=== PATIENT | female | born 1990 | race Caucasian/White ===

== ENCOUNTER 2018-01-02 08:00 | Outpatient (CLI) | payer OTHER ==
[2018-01-02 18:55] LABS: BASOPHILS % (AUTO) 0.8 %; EOSINOPHILS % (AUTO) 0.1 %; HGB - HEMOGLOBIN 13.2 g/dL (12.0-16.0); LYMPHOCYTES # (AUTO) 1.4 10^3/uL (1.5-3.5); LYMPHOCYTES % (AUTO) 33.3 %; MEAN CORPUSCULAR HEMOGLOBIN 29.7 pg (27.0-31.0); MEAN CORPUSCULAR HGB CONC 32.7 g/dL (32.0-36.0); MEAN CORPUSCULAR VOLUME 90.8 fL (81.0-99.0); MEAN PLATELET VOLUME 7.8 fL (7.9-10.8); MONOCYTES # (AUTO) 0.4 10^3/uL (0.0-1.0); MONOCYTES % (AUTO) 9.8 %; NEUTROPHILS # (AUTO) 2.4 10^3/uL (1.5-6.6); PLT - PLATELET COUNT 278 10^3/uL (130-450); RED BLOOD COUNT 4.43 10^6/uL (4.20-5.40); RED CELL DISTRIBUTION WIDTH 13.4 % (12.0-15.0); WHITE BLOOD COUNT 4.2 x10^3/uL (4.8-10.8)
[2018-01-02 19:28] LABS: THYROID STIMULATING HORMONE 1.14 uIU/mL (0.34-5.60)
[2018-01-02 19:39] LABS: FOLATE 17.6 ng/mL (5.90 - >24.8)
[2018-01-02 22:44] LABS: % IRON SATURATION 21 % (20-50); ALBUMIN 4.4 g/dL (3.2-5.5); ALBUMIN/GLOBULIN RATIO 1.6 (1.0-2.2); ALKALINE PHOSPHATASE 40 IU/L (42-121); ALT ALANINE AMINOTRANSFERASE 17 IU/L (10-60); AST ASPARTATE AMINOTRANSFERASE 19 IU/L (10-42); BILIRUBIN,TOTAL 0.2 mg/dL (0.2-1.0); BUN - BLOOD UREA NITROGEN 12 mg/dL (6-20); CALCIUM 9.1 mg/dL (8.5-10.3); CARBON DIOXIDE - CO2 27 mmol/L (21-32); CHLORIDE 104 mmol/L (101-111); CREATININE 0.4 mg/dL (0.4-1.0); GFR - MDRD 189 (>89); GLUCOSE 95 mg/dL (70-100); IRON 65 ug/dL (28-170); MAGNESIUM 2.1 mg/dL (1.7-2.8); SODIUM 137 mmol/L (135-145); TOTAL IRON BINDING CAPACITY 315 ug/dL (250-450); TOTAL PROTEIN 7.1 g/dL (6.7-8.2); TRANSFERRIN 225 mg/dL (192-382)
== END 2018-01-02 08:01 | disposition home or self-care (01) ==
LOC: LAB.WCP 08:00
PROVIDERS: ATTEND Physician Assistant
DX: R53.83 Other fatigue (principal)
CPT/HCPCS: 36415; 80053; 82607; 82746; 83540; 83735; 84443; 84466; 85025

== ENCOUNTER 2018-07-24 11:04 | Outpatient (CLI) | payer OTHER | END 2018-07-24 11:05 | disposition EMS.NT | LOC: EMS 11:04 | PROVIDERS: ATTEND Surgery | DX: O99.89 Other specified diseases and conditions complicating pregnancy, childbirth and the puerperium (principal); R51 Headache ==

== ENCOUNTER 2018-08-15 14:11 | Outpatient (CLI) | payer BC, OTHER ==
--- NOTE | 2018-08-16 10:27 | Ultrasound Report ---
Reason: PREG TEST POSITIVE Procedure Date: 08/15/2018 Accession Number: [id number] / [id number] Procedure: US - OB First Trimester CPT Code: FULL RESULT: EXAM: FIRST TRIMESTER OBSTETRIC ULTRASOUND (Less than 11 weeks) EXAM DATE: 08/15/2018 03:07 PM. CLINICAL HISTORY: test positive. LMP: 06/27/2018. COMPARISONS: None. TECHNIQUE: Transabdominal ultrasound examination with static image documentation. CLINICAL DATES: EGA 7 weeks 1 day with CLAUDIA 04/03/2019 based on LMP. ASSESSMENT: Gestational Sac: Single intrauterine. Mean gestational sac diameter: 22.5 mm = 6 weeks 6 days. Embryo: CRL (crown-rump length) 5.2 mm = 6 weeks 2 days. Cardiac activity: 117 beats per minute. Yolk sac: 3.1 mm. Amniotic fluid: Not accurately assessed at this gestational age. Early placenta: Not visible at this gestational age. Other: No perigestational fluid collection demonstrated. MATERNAL STRUCTURES: Uterus: Anteverted. Unremarkable. Cervix: Closed. Right Ovary/Adnexa: The ovary measures 3.9 x 2.3 x 1.7 cm, volume 7.9 cc. Unremarkable. Left Ovary/Adnexa: The ovary measures 4.6 x 2.3 x 2 cm, volume 11 cc. Unremarkable. Free Fluid: None. Other: None. IMPRESSION: 1. Single viable intrauterine at EGA 6 weeks 2 days with CLAUDIA 04/08/19 based on crown-rump length, which is concordant with clinical dates. 2. Assigned dating is CLAUDIA 04/03/2019 based on LMP. RADIA
== END 2018-08-15 14:12 | disposition home or self-care (01) ==
LOC: DI 14:11
PROVIDERS: ATTEND Nurse Practitioner Obstetrics & Gynecology
DX: Z32.01 Encounter for pregnancy test, result positive (principal); Z3A.01 Less than 8 weeks gestation of pregnancy
CPT/HCPCS: 76801

== ENCOUNTER 2018-09-05 09:44 | Outpatient (CLI) | payer BC, OTHER ==
[2018-09-05 17:57] LABS: MUDS CUTOFF CONCENTRATIONS CUTOFF CONC BELOW:
[2018-09-05 18:20] LABS: AMPHETAMINE SCREEN,URINE NEGATIVE (NEGATIVE); BENZODIAZEPINES SCREEN, URINE NEGATIVE (NEGATIVE); COCAINE SCREEN URINE NEGATIVE (NEGATIVE); METHADONE SCREEN, URINE NEGATIVE (NEGATIVE); METHAMPHETAMINES SCREEN, URINE NEGATIVE (NEGATIVE); OPIATE SCREEN, URINE NEGATIVE (NEGATIVE); OXYCODONE SCREEN, URINE NEGATIVE (NEGATIVE); PROPOXYPHENE SCREEN, URINE NEGATIVE (NEGATIVE); TRICYCLIC ANTIDEPRESSANT,URINE NEGATIVE (NEGATIVE)
== END 2018-09-05 23:59 | disposition home or self-care (01) ==
LOC: LAB.R 09:44
PROVIDERS: ATTEND Nurse Practitioner Obstetrics & Gynecology
DX: Z36.89 Encounter for other specified antenatal screening (principal)
CPT/HCPCS: 80306; 87491; 87591

== ENCOUNTER 2018-09-10 09:44 | Outpatient (CLI) | payer BC, OTHER ==
[2018-09-10 10:11] LABS: BASOPHILS % (AUTO) 0.8 %; EOSINOPHILS % (AUTO) 0.1 %; HGB - HEMOGLOBIN 13.1 g/dL (12.0-16.0); LYMPHOCYTES # (AUTO) 1.2 10^3/uL (1.5-3.5); LYMPHOCYTES % (AUTO) 21.7 %; MEAN CORPUSCULAR HEMOGLOBIN 30.7 pg (27.0-31.0); MEAN CORPUSCULAR HGB CONC 33.9 g/dL (32.0-36.0); MEAN CORPUSCULAR VOLUME 90.7 fL (81.0-99.0); MEAN PLATELET VOLUME 6.7 fL (7.9-10.8); MONOCYTES # (AUTO) 0.5 10^3/uL (0.0-1.0); MONOCYTES % (AUTO) 8.9 %; NEUTROPHILS # (AUTO) 3.9 10^3/uL (1.5-6.6); NEUTROPHILS % (AUTO) 68.5 %; PLT - PLATELET COUNT 287 10^3/uL (130-450); RED BLOOD COUNT 4.28 10^6/uL (4.20-5.40); RED CELL DISTRIBUTION WIDTH 13.5 % (12.0-15.0); WHITE BLOOD COUNT 5.6 x10^3/uL (4.8-10.8)
[2018-09-10 10:22] LABS: BILIRUBIN,URINE NEGATIVE (NEGATIVE); GLUCOSE, URINE (UA) NEGATIVE (NEGATIVE); KETONES,URINE (UA) NEGATIVE (NEGATIVE); LEUKOCYTE ESTERASE, URINE SMALL (NEGATIVE); NITRITE,URINE NEGATIVE (NEGATIVE); OCCULT BLOOD,URINE NEGATIVE (NEGATIVE); PROTEIN,URINE NEGATIVE (NEGATIVE); UROBILINOGEN,URINE 0.2 (NORMAL) E.U./dL (NORMAL)
[2018-09-10 10:32] LABS: BACTERIA,URINE Few /HPF (None Seen); CLARITY,URINE HAZY (CLEAR); RBC,URINE 0-5 /HPF (0-5); SQUAMOUS EPITHELIAL CELL,UR FEW Squamous (<= Few)
[2018-09-11 12:33] LABS: HEPATITIS C ANTIBODY NON-REACTIVE (NON-REACTIVE)
[2018-09-11 13:52] LABS: HIV AG/AB 4TH GEN NON-REACTIVE (NON-REACTIVE)
[2018-09-11 14:22] LABS: HEPATITIS B SURFACE ANTIGEN NON-REACTIVE (NON-REACTIVE)
== END 2018-09-10 09:45 | disposition home or self-care (01) ==
LOC: LAB 09:44
PROVIDERS: ATTEND Nurse Practitioner Obstetrics & Gynecology
DX: Z36.89 Encounter for other specified antenatal screening (principal)
CPT/HCPCS: 36415; 81001; 81599; 85025; 86762; 86803; 86850; 86900; 86901; 87086; 87340; 87389

== ENCOUNTER 2018-11-18 13:34 | Outpatient (CLI) | payer BC, OTHER ==
--- NOTE | 2018-11-18 16:03 | Ultrasound Report ---
Reason: ECNOUNTER FOR OTHER SPECIFIED SCREENING Procedure Date: 11/18/2018 Accession Number: [id number] / [id number] Procedure: US - OB Detailed Eval CPT Code: FULL RESULT: EXAM: COMPLETE OBSTETRICAL ULTRASOUND EXAM DATE: 11/18/2018 03:18 PM. CLINICAL HISTORY: anatomic survey. COMPARISON: None. TECHNIQUE: Real-time sonographic evaluation of the fetus performed by the graphic pre press trades worker. Multiple registration representative static images were saved for review. DATING: Established EGA 20 weeks 4 days with CLAUDIA 04/03/2019 based on ground support agent. EGA 19 weeks 5 days with CLAUDIA 04/09/2019 based on the current ultrasound. GENERAL EVALUATION Caro . Cardiac activity: 142 bpm. movement: Visualized. Presentation: Breech Placenta: Fundal position. No evidence for previa. Umbilical cord: 3 vessel cord. Central placental cord origin. Amniotic fluid: Subjectively normal. MVP 3.9 cm and EMA 9.4 cm. BIOMETRY Bi-Parietal Diameter (BPD): 4.5 cm, 19 weeks 4 days Head Circumference (HC): 17.5 cm, 20 weeks 0 days Abdominal Circumference (AC): 14.5 cm, 19 weeks 6 days Femur Length (FL): 31 cm, 19 weeks 4 days Estimated Weight: 311 g, 12th percentile for 20 weeks 4 days. ANATOMY The intracranial structures, profile, face/nose/lips, spine, 4 chamber heart and outflow tracts, stomach, abdominal wall and cord insertion, diaphragm, kidneys, bladder, and extremities were visualized and demonstrate no abnormality. MATERNAL STRUCTURES Uterus: Unremarkable. Cervix: Long and closed. Transabdominal length 4.3 cm. Right ovary/adnexa: Unremarkable. Left ovary/adnexa: Unremarkable. Free fluid: None. IMPRESSION: 1. Caro live intrauterine with gestational age weeks/days based on source of assigned dating. 2. Estimated weight is on the lower end of normal when based on the last menstrual period but within expected limits for assigned dating. Taking into account the interval growth from the first trimester dating ultrasound further supports this interpretation. Recommend attention on followup. 3. Normal anatomic survey. No anatomic abnormalities are detected at this time. RADIA
== END 2018-11-18 13:35 | disposition home or self-care (01) ==
LOC: DI 13:34
PROVIDERS: ATTEND Registered Nurse
DX: Z36.89 Encounter for other specified antenatal screening (principal)
CPT/HCPCS: 76811

== ENCOUNTER 2018-12-24 14:22 | Outpatient (CLI) | payer BC, OTHER ==
[2018-12-24 15:49] LABS: HGB - HEMOGLOBIN 11.8 g/dL (12.0-16.0); MEAN CORPUSCULAR HGB CONC 33.4 g/dL (32.0-36.0); RED BLOOD COUNT 3.8 10^6/uL (4.20-5.40); RED CELL DISTRIBUTION WIDTH 13.7 % (12.0-15.0); WHITE BLOOD COUNT 8.1 x10^3/uL (4.8-10.8)
== END 2018-12-24 14:23 | disposition home or self-care (01) ==
LOC: LAB 14:22
PROVIDERS: ATTEND Registered Nurse
DX: Z34.90 Encounter for supervision of normal pregnancy, unspecified, unspecified trimester (principal)
CPT/HCPCS: 36415; 82950; 85027; 86850

== ENCOUNTER 2019-02-09 12:59 | Outpatient (CLI) | payer BC, OTHER ==
[2019-02-09 13:16] VITALS: BP 124/72
--- NOTE | 2019-02-16 11:25 | PROVIDER PROGRESS NOTE ---
- HPI Chief Complaint: Fall Current : Current EDU 04/02/19 Gestation 32 Weeks and 4 Days 1 Para 0 Vital Signs Temperature 36.9 C 02/09/19 13:10 Heart Rate 109 H 02/09/19 13:10 Respiratory Rate 20 02/09/19 13:10 Blood Pressure 124/72 02/09/19 13:10 O2 Saturation 99 02/09/19 13:10 Temperature 36.9 C 02/09/19 13:10 Heart Rate 109 H 02/09/19 13:10 Respiratory Rate 20 02/09/19 13:10 Blood Pressure 124/72 02/09/19 13:10 O2 Saturation 99 02/09/19 13:10 - Exam Date of Service 02/09/2019: Romina presents today after phoning the clinic following a fall during a hike. She states she fell on her right hip. She denies any impact to her abdomen. She denies contractions or bleeding. Reports +FM but feel the movements may be slightly less exaggerated. 2 hours of continuous monitoring secondary to fall. No abdomen involvement. NST reactive. Baseline 150s, moderate variability. + accels, no decels. Tocometry neg contractions. - Procedures OB Procedure Performed: NST NST Procedure: 2 hours of monitoring: NST reactive - baseline 150s, moderate variability, + accels, no decels. Tocometry = no contractions. Service Date of procedure: 02/09/19 - Plan Plan: Pt released home with precautions. She verbalized understanding and denies further questions or concerns at this time.
== END 2019-02-09 15:15 | disposition home or self-care (01) ==
LOC: EEVIPCON 12:59 → WFO 12:59 → FBP 13:02 → WFO 15:15
PROVIDERS: ATTEND Nurse Practitioner Obstetrics & Gynecology
DX: Z34.03 Encounter for supervision of normal first pregnancy, third trimester (principal); Z3A.32 32 weeks gestation of pregnancy
CPT/HCPCS: 99212

== ENCOUNTER 2019-02-25 08:31 | Outpatient (CLI) | payer BC, OTHER ==
--- NOTE | 2019-02-25 14:50 | Ultrasound Report ---
Reason: UTERINE SIZE DATE DISCREPANCY,THIRD TRIMESTER Procedure Date: 02/25/2019 Accession Number: [id number] / [id number] Procedure: US - OB F/U or Repeat CPT Code: FULL RESULT: EXAM: FOLLOW-UP OBSTETRICAL ULTRASOUND EXAM DATE: 02/25/2019 09:14 AM. CLINICAL HISTORY: UTERINE SIZE DATE DISCREPANCY, THIRD TRIMESTER. COMPARISON: OB DETAILED EVAL 11/18/2018 1:49 PM. TECHNIQUE: Real-time sonographic evaluation of the fetus performed by the cross tie tram loader. Multiple ocean import representative static images were saved for review. DATING: Established EGA 34 weeks 6 days with CLAUDIA 04/02/2019 based on working due date. EGA 34 weeks 5 days with CLAUDIA 04/03/2019 based on LMP. EGA 34 weeks 3 days with CLAUDIA 04/05/2019 based on the current ultrasound. GENERAL EVALUATION Caro . Cardiac activity: 133 bpm. movement: Visualized. Presentation: Vertex Placenta: Anterior and laterally to the right. Amniotic fluid: Normal. EMA 20.5 cm. MVP 6.6 cm. BIOMETRY Bi-Parietal Diameter (BPD): 8.7 cm, 34 weeks 6 days Head Circumference (HC): 31.2 cm, 34 weeks 6 days Abdominal Circumference (AC): 30.8 cm, 34 weeks 5 days Femur Length (FL): 6.4 cm, 33 weeks 0 days Estimated Weight: 2394 grams, 30th percentile for 34 weeks 6 days. IMPRESSION: 1. Caro live intrauterine with gestational age 34 weeks 6 days based on working due date. 2. Estimated weight is within expected limits for assigned dating. 3. Normal interval growth compared to 11/18/2018. JORGE
== END 2019-02-25 08:32 | disposition home or self-care (01) ==
LOC: DI 08:31
PROVIDERS: ATTEND Nurse Practitioner Obstetrics & Gynecology
DX: O26.843 Uterine size-date discrepancy, third trimester (principal); Z3A.34 34 weeks gestation of pregnancy
CPT/HCPCS: 76816

== ENCOUNTER 2019-03-12 | Outpatient (CLI) | payer BC, OTHER | END 2019-03-12 23:59 | disposition home or self-care (01) | DX: N89.8 Other specified noninflammatory disorders of vagina (principal) | CPT/HCPCS: 87661; 87801 ==

== ENCOUNTER 2019-03-18 10:11 | Outpatient (CLI) | payer OTHER ==
[2019-03-18 10:42] VITALS: BP 120/84
--- NOTE | 2019-03-18 17:57 | PROCEDURE REPORT ---
- HPI Diagnosis/Indication for NST: Decreased movement Current EDU 04/02/19 Gestation 37 Weeks and 6 Days 1 Para 0 Vital Signs Temperature 36.8 C 03/18/19 10:40 Heart Rate 83 03/18/19 10:40 Respiratory Rate 16 03/18/19 10:40 Blood Pressure 120/84 H 03/18/19 10:40 O2 Saturation 99 03/18/19 10:40 Temperature 36.8 C 03/18/19 10:40 Heart Rate 83 03/18/19 10:40 Respiratory Rate 16 03/18/19 10:40 Blood Pressure 120/84 H 03/18/19 10:40 O2 Saturation 99 03/18/19 10:40 - NST Procedure NST Procedure Start Date 03/18/19 Start Time 10:25 Stop Time 10:59 Vibroacoustic Stimulation Used No Patient States Movement Yes - Results and Plan Findings/Impression: NST reactive. Baseline 130s, moderate variability, + accels, no decels Plan: Pt released home with precautions.
== END 2019-03-18 11:16 | disposition home or self-care (01) ==
LOC: WFO 10:11 → FBP 10:21 → WFO 11:16
PROVIDERS: ATTEND Nurse Practitioner Obstetrics & Gynecology
DX: O36.8130 Decreased fetal movements, third trimester, not applicable or unspecified (principal); Z3A.37 37 weeks gestation of pregnancy
CPT/HCPCS: 59025

== ENCOUNTER 2019-04-03 11:58 | Outpatient (CLI) | payer OTHER ==
--- NOTE | 2019-04-03 15:19 | Ultrasound Report ---
Reason: OBESITY, UNSPECIFIED Procedure Date: 04/03/2019 Accession Number: [id number] / [id number] Procedure: US - OB F/U or Repeat CPT Code: FULL RESULT: EXAM: FOLLOW-UP OBSTETRICAL ULTRASOUND EXAM DATE: 04/03/2019 02:28 PM. CLINICAL HISTORY: OBESITY, UNSPECIFIED. COMPARISON: OB F/U OR REPEAT 02/25/2019 8:38 AM. TECHNIQUE: Real-time sonographic evaluation of the fetus performed by the certified technician specialist. Additional transvaginal imaging to more accurately evaluate cervical length/placental position/etc. Multiple public relations representative static images were saved for review. DATING: Established EGA 40 weeks 1 day with CLAUDIA 04/02/2019 based on source of assigned dating. EGA 39 weeks 1 day based on the current ultrasound. GENERAL EVALUATION Caro . Cardiac activity: 125 bpm. movement: Visualized. Presentation: Cephalic. Placenta: Posterior position. Amniotic fluid: Normal. EMA 21.9 cm. MVP 6.2 cm. BIOMETRY Bi-Parietal Diameter (BPD): 9.5 cm, 38/4 Head Circumference (HC): 34.7 cm, 40/2 Abdominal Circumference (AC): 33.6 cm, 37/4 Femur Length (FL): 7.8 cm, 39/6 Estimated Weight: 3518 g, 39th percentile for 40 weeks 1 day. Biophysical profile: breathin/2 movement: 2/2 tone: 2/2 Amniotic fluid: 2/2 Biophysical profile score: 8/8. Umbilical cord Doppler was performed with mean peak systolic velocity of 55.1 cm/s and forward diastolic flow. Resistive index ranged from 0.5-0.69. S/D of 2.3, 3.2, 2.4, 2.0 and 2.1. IMPRESSION: 1. Caro live intrauterine with gestational age 40 weeks 1 day based on source of assigned dating. 2. Estimated weight is within expected limits for assigned dating. Normal interval growth. 3. Biophysical profile score of 8/8. BINA
== END 2019-04-03 11:59 | disposition home or self-care (01) ==
LOC: DI 11:58
PROVIDERS: ATTEND Obstetrics & Gynecology
DX: O26.843 Uterine size-date discrepancy, third trimester (principal); Z3A.40 40 weeks gestation of pregnancy
CPT/HCPCS: 76816

== ENCOUNTER 2019-04-06 12:02 | Inpatient (IN) | payer OTHER ==
[2019-04-06] MEDS ORDERED: SODIUM CHLORIDE FLUSH 0.9% 10 ML SYRINGE ONE (12:57)
[2019-04-06 13:16] LABS: BASOPHILS % (AUTO) 0.2 %; HGB - HEMOGLOBIN 11.2 g/dL (12.0-16.0); LYMPHOCYTES # (AUTO) 1.2 10^3/uL (1.5-3.5); LYMPHOCYTES % (AUTO) 11.1 %; MEAN CORPUSCULAR VOLUME 90.9 fL (81.0-99.0); MEAN PLATELET VOLUME 10.4 fL (7.9-10.8); MONOCYTES # (AUTO) 0.8 10^3/uL (0.0-1.0); MONOCYTES % (AUTO) 7.9 %; NEUTROPHILS # (AUTO) 8.3 10^3/uL (1.5-6.6); NEUTROPHILS % (AUTO) 80.3 %; PLT - PLATELET COUNT 292 10^3/uL (130-450); RED BLOOD COUNT 3.73 10^6/uL (4.20-5.40); WHITE BLOOD COUNT 10.3 x10^3/uL (4.8-10.8)
[2019-04-06 13:19] LABS: CREATININE,URINE 71.3 mg/dL; PROTEIN/CREATININE RATIO,URINE 0.2 (<=0.2)
[2019-04-06 13:27] LABS: URIC ACID 4.6 mg/dL (2.6-7.2)
[2019-04-06] MEDS ORDERED: OXYTOCIN/DEXTROSE 5 % 30 UNIT/500 ML BAG IV PRN (14:47)
[2019-04-06] MEDS ORDERED: fentaNYL 100 MCG/2 ML VIAL IVP PRN (14:47)
[2019-04-06] MEDS ORDERED: SODIUM CHLORIDE FLUSH 0.9% 10 ML SYRINGE IVP PRN (14:47)
[2019-04-06] MEDS ORDERED: LACTATED RINGERS 1,000 ML IV SCH (15:00)
[2019-04-06] MEDS ORDERED: ACETAMINOPHEN 325 MG TABLET PO SCH (15:00)
[2019-04-06] MEDS ORDERED: SODIUM CHLORIDE FLUSH 0.9% 10 ML SYRINGE IVP SCH (17:00)
--- NOTE | 2019-04-06 20:01 | HISTORY & PHYSICAL EXAMINATION ---
Admit History - Visit Reason Visit Reason: Other - : 1 Parity: 0 Premature: 0 Ectopic: 0 : 0 Care: positive: [facility] Risk/History: positive: None Complications This : positive: None Smoking Status: Never smoker - Mother's Labs Mother's Blood Type: positive: O Mother's RH: positive: Positive GBS: positive: Group B Step Negative Rubella Status: positive: Immune Review of Systems - Constitutional Constitutional: denies: Fatigue, Fever, Chills, Malaise - Eyes Eyes: denies: Blurred vision, Spots in vision, Dipolpia - Cardiovascular Cariovascular: reports: Lightheadedness. denies: Irregular heart rate, Chest pain, Edema - Respiratory Respiratory: denies: SOB at rest - Gastrointestinal Gastrointestinal: denies: Constipation, Diarrhea, Change in bowel habits, Nausea, Vomiting - Musculoskeletal Musculoskeletal: denies: Back pain - Integumentary Integumentary: denies: Rash, Pruritis - Neurological Neurological: denies: Headache, Dizziness - Psychiatric Psychiatric: denies: Depression, Anxiety Physical - Abdominal Exam Vital Signs: Temp Pulse Resp BP Pulse Ox 36.5 C 79 20 144/89 H 100 04/06/19 12:15 04/06/19 14:42 04/06/19 14:42 04/06/19 14:42 04/06/19 14:34 Contraction Frequency (min/apart): 5-7 minutes Contraction Intensity: positive: Moderate to strong Uterine Resting Tone: positive: Soft - Monitoring Heart Rate Baseline: 130 Strip Review: positive: Category I - Presentation Presentation: positive: Vertex - Vaginal Exam Membranes: positive: Membranes ruptured Dilation (in cm): 4 Effacement (%): 50 Station: positive: -1 Cervical Position: positive: Midposition - Speculum Exam Speculum Exam Performed: positive: No Plan for Labor - Plan For Labor I expect patient to be DC'd or transferred within 96 hours.: Yes Plan for Labor: HPI: Romina is a 28yo @ 40.4wks gestation by LMP c/w 8wk U/S who presents with c/o contractions that began at approximately 0200 on 04/06/2019. She states she did lose her mucus plug this morning and there was some spotting with that but otherwise denies vaginal bleeding or leakage of fluid. She reports +FM. She noted some light headedness throughout the day today in addition to swelling to her thighs bilaterally. Her BP was slightly elevated from her normal (130s/80s- 90s) upon arrival. She denies WALLER, visual disturbances, RUQ or epigastric pain. Her PIH labs were all WNL. She has been a patient of [facility] for the duration of which has been complicated only by size less than dates for which she has had 2 growth and EMA ultrasounds which were WNL. The most recent was 2 days ago which was WNL. EFW 3518g, BPP 8/8 and EMA WNL. Upon arrival she was noted to be 2/30/-1, vertex with intact membranes. She progressed to 3-//-1, vertex and was admitted for expectant management. Dating criteria: LMP 06/27/2019 Initial ultrasound at 8wks - agrees Serial Exams: Agree OB History: G1: Current PMHx: Situational depression; Gastric ulcers Surgical Hx: EGD with biopsies 2015 - H. pylori negative; [place] teeth removal Social hx: NEver smoker, no ETOH or IVDA. 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 Peter Family Hx: HTN- father; Alcoholism- brother; Stroke/CVA - Maternal grandmother; Breast cancer - Maternal grandmother, paternal grandmother; cardiovascular disease- multiple MIs 56/57, valvular disease. Genetic Hx: None Medications: PNV, TUMS, zantac, tylenol PRN Allergies: Sulfa labs: Hgb 11.2; Hct 33.9; PLT 292 Blood type O positive, antibody neg Rubella immune RPR non-reactive HIV non-reactive GC/CT neg Hep B neg Pap 11/10/2016 - neg UTOX neg TSH 1.14 28wk labs: Antibody neg 1 hour GTT 110 GBS neg Tdap 01/20/2019 Ultrasounds: Initial ultrasound @ 8wks c/w LMP dating FAS WNL; Fundal placenta, no previa. EMA WNL, 3VC. 02/25/19 growth and MEA secondary to size<dates WNL. EFW 30th percentile. 04/03/2019 growth and EMA secondary to size<dates WNL. EFW 3518g 39th percentile. BPP 8/8 Physical Exam: Heart RRR w/o M/G/R Lungs CTAB Abdomen gravid, soft, nontender EFW 3500g SVE 4/50/-1, midposition, soft, vertex AROM moderate amount of moderately meconium stained amniotic fluid FHR baseline 130, moderate variability, + accels, no decels Contractions palpate moderate to strong every 5-7 minutes with soft resting tone Bilateral LEs trace edema DTRs brisk - no clonus Assessment: 28yo @ 40.4wks gestation by LMP Active labor GBS neg AROM - moderate meconium Plan: Intermittent monitoring Expectant management Encouraged ambulation and position changes Nitrous oxide PRN. Epidural per maternal request - pt does intend unmedicated delivery Anticipate spontaneous vaginal delivery
[2019-04-06] MEDS ORDERED: ONDANSETRON 4 MG/2 ML VIAL IVP PRN (21:13)
[2019-04-07] MEDS ORDERED: LIDOCAINE 1% 50 ML MDV SUBQ ONE (03:50)
[2019-04-07] MEDS ORDERED: LIDOCAINE-MPF 1% 30 ML VIAL ONE (04:03)
[2019-04-07] MEDS ORDERED: WITCH HAZEL/GLYCERIN 1 PAD TOP PRN (04:26)
[2019-04-07] MEDS ORDERED: HYDROCORTISONE 1% CREAM 28 GM TUBE PR PRN (04:26)
--- NOTE | 2019-04-07 04:35 | DELIVERY NOTE ---
Delivery Note - Labor Labor: positive: Augmented by ARM - Infant Delivery Method Delivery Method: positive: Spontaneous vaginal delivery - Presentation Presentation: positive: Vertex, DAMARI - left occiput anterior - Nuchal Cord Nuchal Cord: positive: None - Amniotic Fluid Description Amniotic Fluid Description: positive: Moderate meconium - Episiotomy Type Episiotomy Type: positive: None - Laceration Laceration: positive: 1st degree, Perineal - Suture Suture Type: positive: Vicryl Suture Size: positive: 3-0 - Delivery Outcome Delivery Outcome: positive: Livebirth - [place] : positive: Placed in direct skin contact with mother, Bulb syringe, Stimulated, Warmed, [place] used [place] sex: positive: Female - Cord Cord: positive: 3 vessels - Placenta Placenta: positive: Intact, Spontaneous - Estimated Blood Loss Estimated Blood Loss (in cc): 250 - Post Delivery Events Post Delivery Events: positive: No post delivery events - Delivery Comments (Free Text/Narrative) Delivery Comments (Free Text/Narrative): Labor: This 28yo @ 40.5wks gestation by LMP presented on 04/06/2019 in early labor. Cervix was 2/30/-2, vertex with intact membranes. In 4 hours she progressed to to 3/50/-1, vertex. FHR pattern demonstrated Category I pattern throughout labor. Normal labor course. AROM occurred at 1952 and was noted to be a moderate amount of meconium stained amniotic fluid. Patient progressed to c/c/+1 at 0324. : Normal of viable female infant at 0345 on 04/07/2019. No nuchal cord. 's 9/9 at 1 and 5 min respectively. The was placed on maternal abdomen, stimulated, dried, and placed skin to skin. Pitocin administered via IV for hemostasis. The umbilical cord was allowed to stop pulsating at which time it was doubly clamped by CNM and cut by FOB. Cord blood was obtained. 3VC. Placenta delivered spontaneously and intact at 0350. EBL 250mL. Uterine fundus firm and there is no excessive bleeding. The perineum, vagina, and cervix were inspected and found to have a first degree perineal laceration which was repaired using a 3-[address]-1 needle in standard fashion under sterile conditions. Vaginal examination following repair was completed. Tissues well approximated. initiated. Family bonding well. Both mother and baby were left in stable condition.
[2019-04-07] MEDS: ACETAMINOPHEN 500 MG TABLET PO SCH ×3 (04:57→21:22)
[2019-04-07] MEDS ORDERED: IBUPROFEN 800 MG TABLET PO SCH (05:00)
[2019-04-07] MEDS: DOCUSATE SODIUM 100 MG CAPSULE PO SCH ×2 (09:12→21:22)
[2019-04-08] MEDS: ACETAMINOPHEN 500 MG TABLET PO SCH (05:44)
[2019-04-08] MEDS: DOCUSATE SODIUM 100 MG CAPSULE PO SCH (08:08)
[2019-04-08 08:15] VITALS: BP 121/90
--- NOTE | 2019-04-08 08:50 | Discharge Plan ---
Discharge Plan Problem Reviewed?: Yes Disposition: Home, Self Care Condition: Good Diet: Regular Activity Restrictions: No Restrictions Shower Restrictions: No Driving Restrictions: No Weight Bearing: Full Weight No Smoking: If you smoke, Please STOP! Call for help. Follow-up with: Anayeli Theodore CNM, ARNP [Provider Admit Priv/Credential] -
--- NOTE | 2019-04-08 08:53 | PROVIDER PROGRESS NOTE ---
Subjective - Subjective Subjective: FINAL PROGRESS NOTE: S: Bonding well with baby. without difficulty. Bleeding decreased and is light. Pain is well controlled with oral medications. Perineum slightly uncomfortable but overall she is feeling well. Anxious to go home today. She denies concerns or complaints. O: BP 121/90, HR 72, T 36.7, RR 18. Heart RRR w/o M/G/R, lungs CTAB, abdomen soft and nontender with fundus firm at U-1, Perineum intact, light lochia rubra, bilateral LE's no edema. A: 28yo -->P1 PPD#1 s/p TSVD of viable female infant P: Reviewed pp self care and warning s/sx and when to present. Advised continuation of PNV while . Advised ibuprofen and tylenol OTC for pain management PRN. F/u in 1 week for support visit and in 3 weeks for routine pp visit or sooner PRN. PT verbalized understanding and agrees to above plan. She denies further questions or concerns at this time. Objective - Vital Signs/Intake & Output Vital Signs: Vital Signs x48h Temp Pulse Resp BP BP Pulse Ox 04/08/19 08:00 36.7 C 72 18 121/90 H 98 04/08/19 05:38 37 C 73 18 124/73 Intake & Output: Intake & Output 04/05/19 04/06/19 04/07/19 04/08/19 23:59 23:59 23:59 23:59 Intake Total 360 350 Output Total 750 Balance 360 -750 350 - Lab Results Fish Bones: 04/06/19 12:55
--- NOTE | 2019-04-08 09:42 | DISCHARGE SUMMARY ---
Physician: SINCERE Castaneda DATE OF ADMISSION: 04/06/2019 DATE OF DISCHARGE: 04/08/2019 DIAGNOSES ON ADMISSION 1. A 28-year-old G1, P0 at 40.4 weeks gestation. 2. Early labor. 3. Group B Streptococcus negative. DIAGNOSES ON DISCHARGE 1. A 28-year-old G1, P1-0-0-1, status post spontaneous vaginal delivery on 04/07/2019. 2. Normal recovery. HISTORY OF PRESENT ILLNESS: She is a patient of [facility] who presented on with complaints of contractions. Cervix was 2 cm dilated, 30% effaced, -2 station, vertex positi on with intact membranes. She progressed in 4 hours to 3 cm dilated, 50% effaced, and -1 station and was admitted to [facility] for expectant management. She was augmented with artificial rupture of membranes, which occurred at 1952 and was noted to be a moderate amount of meco nium-stained amniotic fluid. The patient progressed to spontaneously deliver a viable female infant at 0345 on 04/07/2019. Apgars were 9 and 9 at 1 and 5 minutes, respectively. EBL 250 mL. The perin eum, vagina and cervix were inspected and found to have a first-degree perineal laceration, which was repaired using a 3-0 Vicryl on a CT1 needle in standard fashion under sterile conditions. She has been doing well in her course. She is ambulating and tolerating a regular diet. She is urinating without difficulty and her lochia is normal. Her pain is well controlled with oral medications. She will be discharged home today on day #1 with instructions to continue he r vitamin while , and to take [id number] ibuprofen and Tylenol as needed for pain management. She intends to followup with myself at [facility] in 1 week fo r support visit and in 3 weeks for routine visit. She has been given precaution s to call if she has any worsening fevers, chills, abdominal pain, increased bleeding or foul-smellin g vaginal lochia. TD: 04/08/2019 09:25
--- NOTE | 2019-04-08 12:39 | Labor Flowsheet ---
Labor Flowsheet Datetime Report Generated by CPN: 04/08/2019 12:39 Datetime: 04/08/2019 08:01 VITAL SIGNS NBP Sys/[place]/Mean (mmHg): 121 : 90 : 97 Pulse: 72 LaborFlag: Labor Datetime: 04/07/2019 14:00 SpO2 (%): 99 Datetime: 04/07/2019 03:45 MEDICATIONS Medication Comments: NITROUS OFF Datetime: 04/07/2019 03:44 UTERINE ACTIVITY Monitor Mode: Palpation Quality: Strong Resting Tone (Palpate): Relaxed Contraction Comments: wireless toco battery and never replaced prior to d/t pt ASSESSMENT A Monitor Mode: External US Comments: indeterminate baseline; HR ranged from 80s-120s; possible variable decels vs late decels vs early decels w/ pushing Datetime: 04/07/2019 03:33 Monitor Interventions for FHR: Ultrasound Adjusted Datetime: 04/07/2019 03:30 PATIENT CARE Patient Position/Activity: Right Tilt Datetime: 04/07/2019 03:24 VAGINAL EXAM Dilatation (cm): 10.0 Effacement (%): 100 Exam by: DOTTIE SanchezM Datetime: 04/07/2019 03:23 Frequency (min): 2-3.5 Duration (sec): 90-120 Pattern: Normal: <= 5 Contractions in 10 Minutes FHR Baseline Rate : 120 Variability: Moderate 6-25 bpm Accelerations: 15X15 Decelerations: Early Category: Category I STAGE 2 Pushing: Coached on Pushing; Urge to Push Pushing Position: Pushing with Contractions; Pushing Right Side; Pushing Lithotomy Pushing Progress: Descent with Pushing Datetime: 04/07/2019 03:00 TEACHING Instructional Method: Verbal Plan of Care: Plan of Care Discussed Labor/Induction: Pushing Methods Datetime: 04/07/2019 02:59 COMMUNICATION Communication: Call/Page Placed to Provider Provider Notified (Name): A. Arben, CNM Communication Comments: pt feeling pushy, provider on her way in. Datetime: 04/07/2019 02:46 PAIN Pain Scale: 2 Pain Presence: Intermittent Pain Type: Contraction Pain Location: Abdomen Pain Relief Measures: Comfort Measures Datetime: 04/07/2019 02:44 Temperature (C): 36.9 Datetime: 04/07/2019 01:57 Patient Care Comments: high throne Datetime: 04/07/2019 01:39 Station: -1 Datetime: 04/07/2019 00:58 Respirations: 18 Datetime: 04/07/2019 00:32 I/O Interventions: Up to BR Datetime: 04/07/2019 00:21 Notification Reason: Status Update; Status; Labor Status; Uterine Activity; Pain; Patient Req uest Datetime: 04/07/2019 00:19 Pain Coping: Talking Through Contractions; Breathing Through Contractions; Declines Medication or E pidural Datetime: 04/06/2019 23:17 Vaginal Exam Comments: pt refusing VE at this time
== END 2019-04-08 11:51 | disposition home or self-care (01) | DRG 807 ==
LOC: EEVIPCON 12:02 → WFO 12:02 → FBP 12:05 → WFO 14:46 → UNDOFXCLIACCOM 14:47 → FBP 14:47 → UNDOFXCLISVC 14:47 → WFO 19:51 → FBP 19:51 → EEVIPCON 19:52 → UNDOADMIN 19:52 → FBP 19:52 → OBSVTOIN 22:42 → UNDODISIN 04-08 11:51
PROVIDERS: ADMIT Nurse Practitioner Obstetrics & Gynecology; ATTEND Nurse Practitioner Obstetrics & Gynecology
PROC: 10907ZC Drainage of Amniotic Fluid, Therapeutic from Products of Conception, Via Natural or Artificial Opening (ICD-10-PCS; 2019-04-06)
PROC: 10E0XZZ Delivery of Products of Conception, External Approach (ICD-10-PCS; principal; 2019-04-07)
DX: O70.0 First degree perineal laceration during delivery (principal); Z37.0 Single live birth; O77.0 Labor and delivery complicated by meconium in amniotic fluid; Z3A.40 40 weeks gestation of pregnancy; Z87.11 Personal history of peptic ulcer disease; Z86.59 Personal history of other mental and behavioral disorders
CPT/HCPCS: 82570; 83615; 84156; 84450; 84550; 85025; 99213; A9270; G0378; J7120

== ENCOUNTER 2019-10-16 08:00 | Outpatient (CLI) | payer OTHER ==
[2019-10-16 19:27] LABS: BASOPHILS % (AUTO) 0.7 %; HGB - HEMOGLOBIN 13.5 g/dL (12.0-16.0); LYMPHOCYTES # (AUTO) 1.6 10^3/uL (1.5-3.5); MEAN CORPUSCULAR HEMOGLOBIN 28.7 pg (27.0-31.0); MEAN CORPUSCULAR HGB CONC 31.4 g/dL (32.0-36.0); MEAN CORPUSCULAR VOLUME 91.5 fL (81.0-99.0); MEAN PLATELET VOLUME 9.3 fL (7.9-10.8); MONOCYTES # (AUTO) 0.4 10^3/uL (0.0-1.0); MONOCYTES % (AUTO) 9.3 %; NEUTROPHILS # (AUTO) 2.1 10^3/uL (1.5-6.6); NEUTROPHILS % (AUTO) 50.8 %; PLT - PLATELET COUNT 321 10^3/uL (130-450); RED CELL DISTRIBUTION WIDTH 13.1 % (12.0-15.0); WHITE BLOOD COUNT 4.2 x10^3/uL (4.8-10.8)
[2019-10-16 19:41] LABS: ALBUMIN 4.6 g/dL (3.2-5.5); ALBUMIN/GLOBULIN RATIO 1.4 (1.0-2.2); BILIRUBIN,TOTAL 0.8 mg/dL (0.2-1.0); CALCIUM 9.5 mg/dL (8.5-10.3); CREATININE 0.5 mg/dL (0.4-1.0); TOTAL PROTEIN 7.8 g/dL (6.7-8.2)
== END 2019-10-16 23:59 | disposition home or self-care (01) ==
LOC: LAB.WCP 08:00
PROVIDERS: ATTEND Physician Assistant
DX: R10.9 Unspecified abdominal pain (principal)
CPT/HCPCS: 36415; 80053; 85025

== ENCOUNTER 2019-10-19 08:00 | Outpatient (CLI) | payer OTHER ==
[2019-10-19 18:54] LABS: H. PYLORIS ANTIGEN STL NEGATIVE (Negative)
== END 2019-10-19 23:59 | disposition home or self-care (01) ==
LOC: LAB.WCP 08:00
PROVIDERS: ATTEND Physician Assistant
DX: R10.9 Unspecified abdominal pain (principal)
CPT/HCPCS: 87045; 87046; 87338

== ENCOUNTER 2020-04-21 08:14 | Day surgery (SDC) | payer OTHER ==
[2020-04-21 08:31] LABS: HCG UR QUAL NEGATIVE
[2020-04-21] MEDS ORDERED: LACTATED RINGERS 1,000 ML IV ONE ×2 (08:36→10:29)
--- NOTE | 2020-04-21 09:15 | ANESTHESIA ---
Pre-Anesthesia VS, & Labs - Diagnosis ulcers, rectal bleeding, internal hemorroids, - Procedure EGD, Colonoscopy, Hemorroid banding Vital Signs: Temp Pulse Resp BP Pulse Ox 37.1 C 88 18 127/80 100 04/21/20 08:31 04/21/20 08:31 04/21/20 08:31 04/21/20 08:31 04/21/20 08:31 Height 5 ft 2 in Weight (kg) 49 kg - NPO >8 hours - Is Patient ?: No Home Medications and Allergies Home Medications: Ambulatory Orders Acetaminophen [Tylenol] 650 mg PO Q6H PRN 04/11/20 Acetaminophen [Tylenol] 650 mg PO Q6H PRN 04/11/20 Allergies/Adverse Reactions: Allergies Allergy/AdvReac Type Severity Reaction Status Date / Time sulfamethoxazole AdvReac Hives Verified 04/06/19 21:25 [From Bactrim] trimethoprim [From Bactrim] AdvReac Hives Verified 04/06/19 21:25 Anes History & Medical History - Anesthetic History Anesthesia Complications: reports: No previous complications - Medical History Cardiovascular: reports: Other Pulmonary: reports: None Gastrointestinal: reports: Ulcers, Hemorrhoids, Other Urinary: reports: None Musculoskeletal: reports: None Endocrine/Autoimmune: reports: None Skin: reports: None Smoking Status: Never smoker - Surgical History General: EGD Exam General: Alert Dental: WNL Mouth Opening: Greater than 4 Fingerbreadths Mallampati classification: II Thyromental Distance: greater than 6 cm Respiratory: Lungs clear Cardiovascular: Regular rate Mental/Cognitive Status: Alert/Oriented X3 Plan Anesthesia Type: MAC Consent for Procedure(s) Verified and Reviewed: Yes Code Status: Attempt Resuscitation ASA classification: 1-Healthy patient Is this case an emergency?: No
[2020-04-21] MEDS ORDERED: MIDAZOLAM 2 MG/2 ML VIAL IVP ONE (09:42)
[2020-04-21] MEDS ORDERED: PROPOFOL 200 MG/20 ML VIAL IVP ONE (09:42)
[2020-04-21] MEDS ORDERED: fentaNYL 100 MCG/2 ML VIAL IVP ONE (09:42)
[2020-04-21] MEDS ORDERED: LIDOCAINE-MPF 2% 5 ML VIAL IM ONE (09:42)
[2020-04-21] MEDS ORDERED: KETAMINE 500 MG/10 ML VIAL IVP ONE (09:42)
--- NOTE | 2020-04-21 10:40 | OPERATIVE REPORT ---
Operative Report - General Procedure Date: 04/21/20 Planned Procedure: Hemorrhoid banding Pre-Op Diagnosis: Troublesome bleeding internal hemorrhoids Procedure Performed: 3 columns hemorrhoid banding Post Op Diagnosis: Same - Procedure Note Primary Surgeon: Isabella Anesthesia Provider: TALYA Horne Anesthesia Technique: MAC Pathology: None Estimated Blood Loss (mL): 0 Findings: 2 large internal hemorrhoids 1 moderate internal hemorrhoid Complications: None apparent - Other Other Information/Narrative: Colonoscopy was completed immediately prior to the banding procedure. Timeout was done at the start of the colonoscopy procedure.The patient remained sedated with monitored anesthesia care at this time. All elements of the surgical safety checklist were followed before, during, and after this procedure. The anoscope with obturator was lubricated and placed in the patient's anal canal. The obturator was removed and the slots aligned to allow access to 3 column internal hemorrhoids. The device, the [email or web address] multi band ligator-short shot-was placed into the anal canal. The tip of the device was placed in contact with the tissue to be treated beginning at the 4 o'clock position. The suction port was closed. A single band was deployed and the suction port released.The band was noted to be in place.We next addressed the hemorrhoid complex at 7:00.The tip of the device was placed in contact with the tissue, the suction port covered, a band deployed, the suction port released. Again we were able to see that the band was in place.We next addressed the hemorrhoid at the 11 o'clock position. This was the smallest of the 3. The tip of the device was placed in contact with the tissue, the suction port covered, a band deployed, the suction port released. Again we were able to see that the band was in place.Examination of the anal count canal revealed all [address] The anoscope was removed and the procedure concluded. The patient tolerated the procedure well. She was allowed awaken from sedation and taken to the postanesthesia care unit in good condition.
[2020-04-21 11:18] VITALS: BP 120/77
--- NOTE | 2020-04-21 14:22 | ANESTHESIA POST OP EVALUATION ---
Anesthesia Post Eval - Post Anesthesia Eval Vitals: Last Vital Signs Temp 36.9 C 04/21/20 10:44 Pulse 73 04/21/20 11:18 Resp 18 04/21/20 11:18 BP 120/77 04/21/20 11:18 Pulse Ox 100 04/21/20 11:18 CV Function Including HR & BP: positive: Stable Pain Control: positive: Satisfactory Nausea & Vomiting: positive: Negative Mental Status: positive: Patient Participates Respiratory Status: Airway Patent Hydration Status: Satisfactory Anesthesia Complications: positive: None
== END 2020-04-21 08:15 | disposition home or self-care (01) ==
LOC: SDS 08:14
PROVIDERS: ATTEND Surgery
PROC: 0DB48ZX Excision of Esophagogastric Junction, Via Natural or Artificial Opening Endoscopic, Diagnostic (ICD-10-PCS; 2020-04-21)
PROC: 06LY4CC Occlusion of Hemorrhoidal Plexus with Extraluminal Device, Percutaneous Endoscopic Approach (ICD-10-PCS; principal; 2020-04-21 09:15)
PROC: 0DJD8ZZ Inspection of Lower Intestinal Tract, Via Natural or Artificial Opening Endoscopic (ICD-10-PCS; 2020-04-21 09:15)
DX: K22.70 Barrett's esophagus without dysplasia (principal); K29.70 Gastritis, unspecified, without bleeding; K64.8 Other hemorrhoids; K44.9 Diaphragmatic hernia without obstruction or gangrene; Z87.11 Personal history of peptic ulcer disease
CPT/HCPCS: 43239; 45378; 46221; 81025; J7120

== ENCOUNTER 2020-05-12 08:00 | Outpatient (CLI) | payer OTHER ==
[2020-05-12 15:27] LABS: MUDS CUTOFF CONCENTRATIONS CUTOFF CONC BELOW:
[2020-05-12 15:52] LABS: BILIRUBIN,URINE NEGATIVE (NEGATIVE); GLUCOSE, URINE (UA) NEGATIVE (NEGATIVE); KETONES,URINE (UA) NEGATIVE (NEGATIVE); LEUKOCYTE ESTERASE, URINE NEGATIVE (NEGATIVE); NITRITE,URINE NEGATIVE (NEGATIVE); OCCULT BLOOD,URINE NEGATIVE (NEGATIVE); PROTEIN,URINE NEGATIVE (NEGATIVE); UROBILINOGEN,URINE 0.2 (NORMAL) E.U./dL (NORMAL)
[2020-05-12 16:05] LABS: CLARITY,URINE CLOUDY (CLEAR)
[2020-05-12 16:06] LABS: RBC,URINE None Seen /HPF (0-5); SQUAMOUS EPITHELIAL CELL,UR FEW Squamous (<= Few)
[2020-05-12 16:07] LABS: AMORPHOUS SEDIMENT,UR Marked /LPF; BACTERIA,URINE None Seen /HPF (None Seen)
[2020-05-12 16:09] LABS: AMPHETAMINE SCREEN,URINE NEGATIVE (NEGATIVE); BENZODIAZEPINES SCREEN, URINE NEGATIVE (NEGATIVE); COCAINE SCREEN URINE NEGATIVE (NEGATIVE); METHADONE SCREEN, URINE NEGATIVE (NEGATIVE); METHAMPHETAMINES SCREEN, URINE NEGATIVE (NEGATIVE); OPIATE SCREEN, URINE NEGATIVE (NEGATIVE); OXYCODONE SCREEN, URINE NEGATIVE (NEGATIVE); PROPOXYPHENE SCREEN, URINE NEGATIVE (NEGATIVE); TRICYCLIC ANTIDEPRESSANT,URINE NEGATIVE (NEGATIVE)
== END 2020-05-12 23:59 | disposition home or self-care (01) ==
LOC: LAB.R 08:00
PROVIDERS: ATTEND Advanced Practice Midwife
DX: Z32.01 Encounter for pregnancy test, result positive (principal)
CPT/HCPCS: 80306; 81001; 87086

== ENCOUNTER 2020-06-05 10:51 | Outpatient (CLI) | payer OTHER ==
--- NOTE | 2020-06-05 14:48 | Ultrasound Report ---
PROCEDURE: OB First Trimester INDICATIONS: POSITIVE TEST OUTSIDE/PRIOR DATING DATA: Last menstrual period (LMP): 04/09/2020. LMP-based estimated date of delivery (CLAUDIA): 01/14/2021. First dating scan (date and location): 2019. [facility]. Estimated date of delivery (CLAUDIA) from first dating scan: 01/21/2021. TECHNIQUE: Real-time scanning was performed of the fetus and maternal pelvic organs, with image documentation. COMPARISON: None FINDINGS: Embryo: There is a single live uterine gestation with a crown-rump length of 1.0 cm for a composite gestational age of 7 weeks, 1 day. Measurement variability in dating: +/- 4 weeks by LMP, +/- 7 days by mean sac diameter (use before 6 weeks gestation if crown-rump length not able to be measured), +/- 5 days by crown-rump length (6-12 weeks gestation). Maternal organs: Ovaries have a normal sonographic appearance. There is a right corpus luteal cyst. Trace fluid surrounds the left ovary. Limited images through the kidneys demonstrate no hydronephros is. IMPRESSION: 1. Single live intrauterine gestation with a gestational age of 7 weeks 1 day by crown-rump length. 2. Right corpus luteal cyst. Reviewed by: Irene Madison MD on 06/05/2020 2:47 PM PDT Approved by: Irene Madsion MD on 06/05/2020 2:47 PM PDT Station ID: [id number]
== END 2020-06-05 10:52 | disposition home or self-care (01) ==
LOC: DI 10:51
PROVIDERS: ATTEND Advanced Practice Midwife
DX: O34.81 Maternal care for other abnormalities of pelvic organs, first trimester (principal); N83.11 Corpus luteum cyst of right ovary; Z3A.01 Less than 8 weeks gestation of pregnancy
CPT/HCPCS: 76801

== ENCOUNTER 2020-06-16 09:28 | Outpatient (CLI) | payer OTHER ==
[2020-06-16 09:45] LABS: BASOPHILS % (AUTO) 0.6 %; EOSINOPHILS # (AUTO) 0.1 10^3/uL (0.0-0.7); EOSINOPHILS % (AUTO) 1.2 %; HGB - HEMOGLOBIN 12.2 g/dL (12.0-16.0); LYMPHOCYTES # (AUTO) 1.1 10^3/uL (1.5-3.5); LYMPHOCYTES % (AUTO) 22.3 %; MEAN CORPUSCULAR HEMOGLOBIN 30.3 pg (27.0-31.0); MEAN CORPUSCULAR HGB CONC 33.1 g/dL (32.0-36.0); MEAN CORPUSCULAR VOLUME 91.8 fL (81.0-99.0); MEAN PLATELET VOLUME 8.3 fL (7.9-10.8); MONOCYTES # (AUTO) 0.4 10^3/uL (0.0-1.0); MONOCYTES % (AUTO) 8.2 %; NEUTROPHILS # (AUTO) 3.4 10^3/uL (1.5-6.6); NEUTROPHILS % (AUTO) 67.5 %; PLT - PLATELET COUNT 301 10^3/uL (130-450); RED BLOOD COUNT 4.02 10^6/uL (4.20-5.40); RED CELL DISTRIBUTION WIDTH 12.8 % (12.0-15.0)
[2020-06-17 12:58] LABS: HEPATITIS B SURFACE ANTIGEN NON-REACTIVE (NON-REACTIVE); HEPATITIS C ANTIBODY NON-REACTIVE (NON-REACTIVE)
[2020-06-17 14:27] LABS: HIV AG/AB 4TH GEN NON-REACTIVE (NON-REACTIVE)
== END 2020-06-16 09:29 | disposition home or self-care (01) ==
LOC: LAB 09:28
PROVIDERS: ATTEND Nurse Practitioner Obstetrics & Gynecology
DX: Z36.89 Encounter for other specified antenatal screening (principal)
CPT/HCPCS: 36415; 81599; 85025; 86592; 86762; 86787; 86803; 86850; 86900; 86901; 87340; 87389

== ENCOUNTER 2020-06-17 12:32 | Emergency (ER) | payer OTHER ==
[2020-06-17] MEDS ORDERED: SODIUM CHLORIDE 0.9% 1,000 ML IV STA (12:45)
[2020-06-17] MEDS ORDERED: ONDANSETRON 4 MG/2 ML VIAL IVP STA (12:45)
--- NOTE | 2020-06-17 12:59 | ED Physician Documentation ---
PD HPI FEMALE - Stated complaint Stated Complaint: DEHYDRATION - Chief complaint Chief Complaint: Abd Pain - History obtained from History obtained from: Patient - Additional information Additional information: 30-year-old G2, P1 at a little over 8 weeks gestation has had trouble with vomiting for the last 4 weeks but today despite Reglan cannot keep anything down. She actually could not keep the Reglan down today. No cramping, bleeding, abdominal pain, fevers. Review of Systems Constitutional: denies: Fever, Chills Throat: reports: Reviewed and negative Cardiac: reports: Reviewed and negative Respiratory: reports: Reviewed and negative PD PAST MEDICAL HISTORY - Past Medical History Cardiovascular: Other Respiratory: None Endocrine/Autoimmune: None GI: Ulcers, Hemorrhoids, Other : None HEENT: Chronic vision loss, Other Psych: None Musculoskeletal: None Derm: None - Past Surgical History General: EGD - Present Medications Home Medications: Ambulatory Orders Medication Instructions Recorded Confirmed Acetaminophen [Tylenol] 650 mg PO Q6H PRN 04/11/20 04/21/20 Ondansetron Odt [Zofran] 4 mg TL Q6H PRN #20 tablet 06/17/20 - Allergies Allergies/Adverse Reactions: Allergies Allergy/AdvReac Type Severity Reaction Status Date / Time sulfamethoxazole AdvReac Hives Verified 06/17/20 12:41 [From Bactrim] trimethoprim [From Bactrim] AdvReac Hives Verified 06/17/20 12:41 - Social History Smoking Status: Never smoker PD ED PE NORMAL - Vitals Vital signs reviewed: Yes - General General: Alert and oriented X 3, No acute distress - Cardiac Cardiac: RRR, No murmur - Respiratory Respiratory: No respiratory distress, Clear bilaterally - Abdomen Abdomen: Other (Bedside sono shows single live intrauterine with heart rate of 160.) - Back Back: No CVA TTP, No spinal TTP - Neuro Neuro: Alert and oriented X 3, Normal speech Results - Vitals Vitals: Vital Signs - 24 hr 06/17/20 12:36 Temperature 37 C Heart Rate 70 Respiratory 17 Rate Blood Pressure 131/73 H O2 Saturation 99 Oxygen O2 Source Room air - Labs Labs: Laboratory Tests 06/17/20 13:10 Sodium 138 Potassium 3.5 Chloride 104 Carbon Dioxide 20 L Anion Gap 14.0 H BUN 7 Creatinine 0.4 Estimated GFR (MDRD) 185 Glucose 87 Calcium 9.1 PD MEDICAL DECISION MAKING - ED course ED course: 30-year-old G2, P1 with hyperemesis gravidarum resistant to outpatient Reglan treatment. After IV fluids and Zofran here she felt much better. Passed p.o. challenge. Departure - Departure Disposition: Home, Self Care Clinical Impression: Hyperemesis gravidarum Condition: Good Record reviewed to determine appropriate education?: Yes Instructions: ED Preg Morning Sickness Prescriptions: Ondansetron Odt [Zofran] 4 mg TL Q6H PRN #20 tablet PRN Reason: Nausea / Vomiting Comments: Follow up with your OB as scheduled. Return if worse. As discussed, best to try to focus on the Reglan and use the Zofran only in particularly bad situations of symptomatology.
[2020-06-17 13:54] LABS: CALCIUM 9.1 mg/dL (8.5-10.3); CREATININE 0.4 mg/dL (0.4-1.0)
[2020-06-17 14:07] VITALS: BP 115/70
== END 2020-06-17 14:08 | disposition home or self-care (01) ==
LOC: ED 12:32
DX: O21.0 Mild hyperemesis gravidarum (principal); Z3A.08 8 weeks gestation of pregnancy
CPT/HCPCS: 36415; 80048; 96374; 99283

== ENCOUNTER 2020-09-04 08:22 | Outpatient (CLI) | payer OTHER ==
--- NOTE | 2020-09-04 17:14 | Ultrasound Report ---
PROCEDURE: OB Detailed Eval INDICATIONS: SUPERVISION OF OUTSIDE/PRIOR DATING DATA: Last menstrual period (LMP): 04/09/2020. LMP-based estimated date of delivery (CLAUDIA): 01/14/2021. First dating scan (date and location): 06/05/2021, [facility] Estimated date of delivery (CLAUDIA) from first dating scan: 01/21/2021. TECHNIQUE: Real-time scanning was performed of the fetus, with image documentation and biometric measurements. COMPARISON: None. FINDINGS: Ovaries are unremarkable in appearance. General: A single living intrauterine gestation is present. Presentation: Cephalic Placenta: Placental position is posterior, there was questionable covering the internal os by the pl acental edge on imaging, however on cinematic views this appears adjacent without covering. Amniotic fluid index: 11.6 cm cm, 19% for gestational age. heart rate: 147 beats per minute. Maternal cervical canal: 4.5 cm long; normal length is 2.5 cm or more. biometrics: Biparietal diameter: 4.4 cm, 19 weeks 3 days Head circumference: 17.0 cm, 19 weeks 4 days Abdominal circumference: 14.4 cm, 19 weeks 5 days Femur length: 3.1 cm, 19 weeks 3 days Estimated gestational age from initial scan: 20 weeks 1 day Composite gestational age from present scan: 19 weeks 4 days Estimated weight and percentile: 301 g, 18% Measurement variability in biometric dating: +/- 10 days from 12-20 weeks gestation, +/- 2 weeks from 20-30 weeks gestation, +/- 3 weeks at 30 weeks gestation or later. Anatomic survey: Neuro: Ventricles are normal at less than 10 mm. Cisterna magna is normal at 3-11 mm. Cerebellum i s normal in size and morphology. Nuchal skin fold: Normal at less than 6 mm between 14 and 20 weeks gestational age. Face: Nose and lips, facial profile are normal. Spine: No evidence for spina bifida. Heart: 4-chambered heart is present, with normal ventricular outflow tracts. Diaphragm: Diaphragm is intact. Stomach: Left-sided stomach is present. Kidneys: No hydronephrosis. Normal is less than 5 mm in 2nd trimester, less than 7 mm in 3rd trimester. Cord: 3 vessel cord has orthotopic insertion. Bladder: Normal in size. Extremities: All 4 extremities are visualized. IMPRESSION: Single living intrauterine with heart rate of 147 bpm with estimated gestational age of 19 weeks 4 days on today's examination. Estimated weight of 301 g corresponding to the 18th percentile. Low-lying placenta. No evidence of anatomic abnormality. EMA of 11.6 cm. Reviewed by: Garrison Gongora DO on 09/04/2020 4:13 PM [facility] Approved by: Garrison oGngora DO on 09/04/2020 4:13 PM [facility] Station ID: [id number]
== END 2020-09-04 08:23 | disposition home or self-care (01) ==
LOC: DI 08:22
PROVIDERS: ATTEND Advanced Practice Midwife
DX: Z34.90 Encounter for supervision of normal pregnancy, unspecified, unspecified trimester (principal)

== ENCOUNTER 2020-10-02 14:27 | Outpatient (CLI) | payer OTHER ==
--- NOTE | 2020-10-02 17:28 | Ultrasound Report ---
PROCEDURE: OB F/U or Repeat INDICATIONS: LOW LYING PLACENTA, SUPERV OF PREG OUTSIDE/PRIOR DATING DATA: Last menstrual period (LMP): 04/09/2020. LMP-based estimated date of delivery (CLAUDIA): 01/14/2021. First dating scan (date and location): 06/05/2021, [facility]. Estimated date of delivery (CLAUDIA) from first dating scan: 01/21/2021. TECHNIQUE: Real-time scanning was performed of the fetus, with image documentation and biometric measurements. COMPARISON: 06/05/2020, 09/04/2020 FINDINGS: General: A single live intrauterine gestation is present. Presentation: Breached Placenta: Placental position is low-lying, without previa. The inferior edge of the placenta is seen 1.1 cm from the internal cervical os. Amniotic fluid index: 11 cm, 11th percentile for gestational age. heart rate: 162 beats per minute. Maternal cervical canal: 5.6 cm long; normal length is 2.5 cm or more. Estimated gestational age from initial scan: 24 weeks 1 day. Other: Not applicable. IMPRESSION: The placenta is again seen to be low-lying, without placenta previa. On the current stud y, the inferior edge of the placenta is seen 1.1 cm from the internal cervical os. Reviewed by: Mark Gonzales MD on 10/02/2020 4:27 PM [facility] Approved by: Mark Gonzales MD on 10/02/2020 4:27 PM [facility] Station ID: [id number]
== END 2020-10-02 14:28 | disposition home or self-care (01) ==
LOC: DI 14:27
PROVIDERS: ATTEND Advanced Practice Midwife
DX: O44.42 Low lying placenta NOS or without hemorrhage, second trimester (principal); Z3A.24 24 weeks gestation of pregnancy

== ENCOUNTER 2020-10-28 14:36 | Outpatient (CLI) | payer OTHER ==
[2020-10-28 15:51] LABS: HCT - HEMATOCRIT 36.4 % (37.0-47.0); HGB - HEMOGLOBIN 12.1 g/dL (12.0-16.0); MEAN CORPUSCULAR HEMOGLOBIN 31.6 pg (27.0-31.0); MEAN CORPUSCULAR HGB CONC 33.2 g/dL (32.0-36.0); MEAN PLATELET VOLUME 8.5 fL (7.9-10.8); RED BLOOD COUNT 3.83 10^6/uL (4.20-5.40); RED CELL DISTRIBUTION WIDTH 13.1 % (12.0-15.0); WHITE BLOOD COUNT 8.1 x10^3/uL (4.8-10.8)
== END 2020-10-28 14:37 | disposition home or self-care (01) ==
LOC: LAB 14:36
PROVIDERS: ATTEND Nurse Practitioner Obstetrics & Gynecology
DX: Z36.89 Encounter for other specified antenatal screening (principal)
CPT/HCPCS: 36415; 82950; 85027

== ENCOUNTER 2020-10-31 12:45 | Outpatient (CLI) | payer OTHER ==
[2020-10-31] MEDS ORDERED: ONDANSETRON 4 MG/2 ML VIAL IVP PRN (12:54)
[2020-10-31] MEDS ORDERED: LACTATED RINGERS 1,000 ML IV SCH (13:00)
[2020-10-31 13:08] VITALS: BP 107/65
[2020-10-31 13:23] LABS: BASOPHILS % (AUTO) 0.2 %; HGB - HEMOGLOBIN 12.1 g/dL (12.0-16.0); LYMPHOCYTES # (AUTO) 1.3 10^3/uL (1.5-3.5); LYMPHOCYTES % (AUTO) 14.3 %; MEAN CORPUSCULAR HEMOGLOBIN 31.8 pg (27.0-31.0); MEAN CORPUSCULAR HGB CONC 33.6 g/dL (32.0-36.0); MEAN CORPUSCULAR VOLUME 94.5 fL (81.0-99.0); MEAN PLATELET VOLUME 8.8 fL (7.9-10.8); MONOCYTES # (AUTO) 0.7 10^3/uL (0.0-1.0); MONOCYTES % (AUTO) 7.8 %; NEUTROPHILS # (AUTO) 6.9 10^3/uL (1.5-6.6); NEUTROPHILS % (AUTO) 77.4 %; PLT - PLATELET COUNT 304 10^3/uL (130-450); RED BLOOD COUNT 3.81 10^6/uL (4.20-5.40); RED CELL DISTRIBUTION WIDTH 13.1 % (12.0-15.0); WHITE BLOOD COUNT 8.9 x10^3/uL (4.8-10.8)
[2020-10-31 13:36] LABS: ALBUMIN 3.4 g/dL (3.2-5.5); ALBUMIN/GLOBULIN RATIO 1.1 (1.0-2.2); BILIRUBIN,TOTAL 0.6 mg/dL (0.2-1.0); CALCIUM 8.7 mg/dL (8.5-10.3); CREATININE 0.3 mg/dL (0.4-1.0); POTASSIUM 3.6 mmol/L (3.5-5.0); TOTAL PROTEIN 6.4 g/dL (6.7-8.2)
[2020-10-31 14:15] LABS: BILIRUBIN,URINE NEGATIVE (NEGATIVE); GLUCOSE, URINE (UA) NEGATIVE (NEGATIVE); KETONES,URINE (UA) 15 mg/dL (NEGATIVE); LEUKOCYTE ESTERASE, URINE NEGATIVE (NEGATIVE); NITRITE,URINE NEGATIVE (NEGATIVE); OCCULT BLOOD,URINE NEGATIVE (NEGATIVE); PROTEIN,URINE NEGATIVE (NEGATIVE); UROBILINOGEN,URINE 0.2 (NORMAL) E.U./dL (NORMAL)
[2020-10-31 14:17] LABS: CLARITY,URINE CLEAR (CLEAR)
[2020-10-31 14:40] LABS: CREATININE,URINE 34.3 mg/dL; TOTAL PROTEIN,URINE TIMED < 6 mg/dL
[2020-10-31 14:41] LABS: BACTERIA,URINE None Seen /HPF (None Seen); MUCUS,URINE Few Strands; RBC,URINE None Seen /HPF (0-5); SQUAMOUS EPITHELIAL CELL,UR FEW Squamous (<= Few); WBC,URINE 0-3 /HPF (0-5)
--- NOTE | 2020-10-31 15:14 | Ultrasound Report ---
PROCEDURE: Abdomen Limited INDICATIONS: RUQ PAIN IN 28.2w TECHNIQUE: Real-time scanning was performed of the abdominal and retroperitoneal organs, with image documentatio n. COMPARISON: None. FINDINGS: Liver: Liver is normal in size and homogeneous in echotexture. Gallbladder: The gallbladder appears normal without gallstones or gallbladder wall thickening. There is no pericholecystic fluid. Sonographic Sharma sign is negative. Biliary ducts: Intrahepatic bile ducts are non-dilated. Extrahepatic bile duct caliber measures 2 m m. Normal is 6-7 mm or less in diameter, or 10 mm or less post-cholecystectomy. Pancreas: Pancreas is not well visualized. Spleen: Spleen is normal in size and homogeneous in echotexture. Kidneys: Right kidney is normal in size, measuring 11.6 cm. There is no hydronephrosis or nephrolith iasis. No solid renal mass is seen. A simple right renal cyst measures 2.4 x 2 x 1.3 cm. Aorta: Visualized aorta is normal in caliber at less than 3 cm. IVC: Intrahepatic inferior vena cava is patent. Miscellaneous: No free abdominal fluid. IMPRESSION: No acute abnormality is identified in the right upper quadrant. Normal gallbladder. Reviewed by: Paco Loco MD on 10/31/2020 2:13 PM [facility] Approved by: Paco Loco MD on 10/31/2020 2:13 PM [facility] Station ID: [id number]
--- NOTE | 2020-10-31 15:18 | Ultrasound Report ---
PROCEDURE: OB Limited INDICATIONS: Abd pain OUTSIDE/PRIOR DATING DATA: Last menstrual period (LMP): 04/09/2020. LMP-based estimated date of delivery (CLAUDIA): 01/14/2021. First dating scan (date and location): 06/05/2020 at [facility]. Estimated date of delivery (CLAUDIA) from first dating scan: 01/21/2021. TECHNIQUE: Real-time scanning was performed of the fetus, with image documentation. Endovaginal scanning: Not performed. COMPARISON: OB ultrasound 10/02/2020 FINDINGS: A single living intrauterine gestation is present. Presentation: Vertex Placenta: Placental position is posterior, with inferior margin approximately 1.4 cm from the interna l cervical os. Amniotic fluid index: 16.6 cm, normal for gestational age. heart rate: 140 beats per minutes. Maternal cervical canal: 3.8 cm long; normal length is 2.5 cm or more. Estimated gestational age from initial scan: 20 weeks 2 days. IMPRESSION: 1. Single live intrauterine . 2. Low-lying placenta again seen with the inferior margin 1.4 cm from the internal cervical os. Yosi mmend continued attention on follow-up exams. Reviewed by: Paco Loco MD on 10/31/2020 2:17 PM [facility] Approved by: Paco Loco MD on 10/31/2020 2:17 PM [facility] Station ID: [id number]
--- NOTE | 2020-10-31 16:18 | PROVIDER PROGRESS NOTE ---
- HPI Chief Complaint: Pain, non-labor Current : Current EDU 01/21/21 Gestation 28 Weeks and 2 Days 2 Para 1 Vital Signs Heart Rate 85 10/31/20 13:07 Respiratory Rate 16 10/31/20 13:07 Blood Pressure 107/65 10/31/20 13:07 Temperature Heart Rate 85 10/31/20 13:07 Respiratory Rate 16 10/31/20 13:07 Blood Pressure 107/65 10/31/20 13:07 O2 Saturation - Procedures OB Procedure Performed: NST Diagnosis/Indication for NST: Other NST Procedure: NST Procedure Start Time 10:25 Stop Time 10:59 Service Date of procedure: 10/31/20 - Plan Plan: Patient evaluated [id number] in [facility] triage: S: Romina presents to [facility] at 28.2wks gestation by 7.1wk U/S not consistent with LMP dating. She reports this morning she was bending over with her daughter in the bathtub and she experienced very sudden onset, sharp right upper quadrant abdominal pain. Describes pain as sharp and stabbing. Initially the pain would resolve with movement to a standing position but then it would not resolve. She rated the pain 6/10 pain and states her pain with her unmedicated delivery in her last was never more than 7/10. She felt her abdomen was tight only in the right upper quadrant and states the pain did not feel like a contraction. Reports nausea with peak of the pain. She denies vaginal bleeding or leakage of fluid and reports +FM. She denies urinary symptoms. She states she may be slightly constipated but has intermittently used Colace which has helped. She states she has not noted difficulty with bowel movements recently and states she usually has a bowel movement once per day. However, she has not had a BM this morning. She feels she has been doing well keeping up with her fluid intake but does states she seems to always feel better after IV fluid. She had not had anything to eat for lunch but ate cereal for breakfast which is a normal breakfast for her. Reports when she got into the car the pain seemed to dissipate somewhat and was mostly gone by the time she got here. O: BP 107/65, HR 85, RR 16, T afebrile WBC 8.9 Hgb 12.1; Hct 36.0 PLT 304 BUN 8; Cr 0.3 AST 17; ALT 11 Protein/creatinine ratio: not reportable (urine creatinine 34.3; urine protein <6) UA - negative Pelvic and abdominal ultrasound: Preliminary report WNL. EMA 16 with greatest pocket 5 No evidence of placental abruption Gallbladder WNL No evident cause of RUQ pain 500cc LR fluid bolus administered 4mg Zofran IV administered NST performed 10/31/2020 NST read 10/31/2020 NST reactive: FHR baseline 130s, moderate variability, + accels, no decels No contractions appreciated via tocometry Assessment: 30yo @ 39.2wks gestation RUQ pain, acute - resolved Plan: Pt pain resolved entirely. Desires to go home when safe. Pt released home with precautions. Has emergency contact number. Has f/u visit in the office at [facility] on 11/04/2019. FINAL DIAGNOSIS: RUQ pain in
== END 2020-10-31 16:00 | disposition home or self-care (01) ==
LOC: WFO 12:45 → FBP 12:47 → WFO 16:00
PROVIDERS: ATTEND Nurse Practitioner Obstetrics & Gynecology
DX: O99.891 Other specified diseases and conditions complicating pregnancy (principal); R10.11 Right upper quadrant pain; Z3A.28 28 weeks gestation of pregnancy
CPT/HCPCS: 36415; 76705; 76815; 80053; 81001; 82570; 84156; 85025; 96374; 99214; J7120; 87086

== ENCOUNTER 2020-11-17 08:00 | Outpatient (CLI) | payer OTHER | END 2020-11-17 23:59 | disposition home or self-care (01) | LOC: LAB.WCP 08:00 | PROVIDERS: ATTEND Obstetrics & Gynecology | DX: O98.519 Other viral diseases complicating pregnancy, unspecified trimester (principal) | CPT/HCPCS: 36415; 81599; 86747 ==

== ENCOUNTER 2020-11-28 16:00 | Outpatient (CLI) | payer OTHER ==
--- NOTE | 2020-12-02 10:19 | Ultrasound Report ---
PROCEDURE: OB F/U or Repeat INDICATIONS: LOW LYING PLACENTA OUTSIDE/PRIOR DATING DATA: Last menstrual period (LMP): 04/09/2020. LMP-based estimated date of delivery (CLAUDIA): 01/14/2021. First dating scan (date and location): 06/05/2021. Estimated date of delivery (CLAUDIA) from first dating scan: 01/21/2021. TECHNIQUE: Real-time scanning was performed of the fetus, with image documentation and biometric measurements. COMPARISON: OB ultrasound 10/31/2020 FINDINGS: General: A single living intrauterine gestation is present. Presentation: Vertebral Placenta: Placental position is posterior, without previa. Previous low lying placenta has resolved . Amniotic fluid index: 13.3 cm, 38th percentile for gestational age. Largest pocket 4.7 cm. heart rate: 140 beats per minute. Maternal cervical canal: 3.8 cm long; normal length is 2.5 cm or more. biometrics: Estimated gestational age from initial scan: 32 weeks 2 days Other: Not applicable. IMPRESSION: Single live intrauterine . Previous low lying placenta has resolved. Reviewed by: Keyanna Walsh MD on 12/02/2020 10:18 AM PDT Approved by: Keyanna Walsh MD on 12/02/2020 10:18 AM PDT Station ID: [id number]
== END 2020-11-28 16:01 | disposition home or self-care (01) ==
LOC: DI 16:00
PROVIDERS: ATTEND Nurse Practitioner Obstetrics & Gynecology
DX: O44.00 Complete placenta previa NOS or without hemorrhage, unspecified trimester (principal)

== ENCOUNTER 2020-12-26 08:00 | Outpatient (CLI) | payer OTHER ==
[2020-12-27 11:30] LABS: BILIRUBIN,URINE NEGATIVE (NEGATIVE); GLUCOSE, URINE (UA) NEGATIVE (NEGATIVE); KETONES,URINE (UA) TRACE mg/dL (NEGATIVE); LEUKOCYTE ESTERASE, URINE NEGATIVE (NEGATIVE); NITRITE,URINE NEGATIVE (NEGATIVE); OCCULT BLOOD,URINE NEGATIVE (NEGATIVE); PH,URINE 7.5 PH (5.0-7.5); PROTEIN,URINE NEGATIVE (NEGATIVE); UROBILINOGEN,URINE 0.2 (NORMAL) E.U./dL (NORMAL)
[2020-12-27 11:34] LABS: CLARITY,URINE CLEAR (CLEAR)
[2020-12-27 11:37] LABS: BACTERIA,URINE None Seen /HPF (None Seen); RBC,URINE 0-5 /HPF (0-5); SQUAMOUS EPITHELIAL CELL,UR RARE Squamous (<= Few); WBC,URINE 0-3 /HPF (0-5)
[2020-12-27 18:10] LABS: BACTERIAL VAGINOSIS DNA NEGATIVE (NEGATIVE); CANDIDA GLABRATA DNA NEGATIVE (NEGATIVE); CANDIDA GROUP DNA NEGATIVE (NEGATIVE); CANDIDA KRUSEI DNA NEGATIVE (NEGATIVE); TRICHOMONAS VAGINALIS DNA NEGATIVE (NEGATIVE)
== END 2020-12-26 23:59 | disposition home or self-care (01) ==
LOC: LAB.R 08:00
PROVIDERS: ATTEND Advanced Practice Midwife
DX: O99.891 Other specified diseases and conditions complicating pregnancy (principal); R10.2 Pelvic and perineal pain; Z36.85 Encounter for antenatal screening for Streptococcus B
CPT/HCPCS: 81001; 87086; 87661; 87797; 87801

== ENCOUNTER 2020-12-27 16:19 | Outpatient (CLI) | payer OTHER ==
--- NOTE | 2020-12-27 18:20 | PROVIDER PROGRESS NOTE ---
- HPI Chief Complaint: Labor - Procedures OB Procedure Performed: NST NST Procedure: NST Procedure Start Time 10:25 Stop Time 10:59 Service Date of procedure: 12/27/20 - Plan Plan: Pt evaluated [id number] S: Romina presents today with c/o persistent back pain that comes and goes. Seems to be aggravated by movement. She reports +FM. She denies vaginal bleeding or leakage of fluid. She is unsure if what she is experiencing is contractions or not. Does feel her belly seems tight but thinks it could also be related to movement that causes increased lower back and rectal pressure. Does feel her symptoms improve when she rests but has a hard time doing so. Struggles with constipation and has recently increased her Colace from once per day to twice per day which seems to results in more regular bowel movements. Denies diarrhea. Reports frequent urination and difficulty sleeping for the past several weeks. Has a maternity support belt which helps and she tries to wear frequently but admits this has been rather inconsistent with use. Feels she drinks an adequate amount of water daily. Started taking Mg supplement which did help a little with her cramping. 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 Denies feeling overly anxious about the but states she does feel the need to manage every possible scenario. Reports concern for her daughter Emelyn when she goes into labor. They have an extensive plan "plans A-F" but just wants to make sure she is well taken care of when she leaves. States her is very supportive and has taken off work tomorrow so she can rest. O: NST performed 12/27/2020 NST read 12/27/2020 NST reactive. FHR baseline 140s, moderate variability, + accels, no decels Contractions palpate mild occasionally lasting 50-60 seconds with soft resting tone. SVE closed and thick. Vertex. Large amount of stool appreciated in lower bowel. UA performed yesterday negative with no culture indicated. AFFIRM pending GBS pending A: 30yo @ 36.3wks gestation Constipation Lower back pain Anxiety P: Suspect symptoms are related to full bowel. Advised increased fluid and fiber intake and addition of Mirilax. Anxiety- encouraged continuation of meditation efforts and increased frequency of practice. Reviewed PTL precautions and warning s/sx. Pt has emergency contact information. Pt verbalized understanding and agrees to above plan. She denies further questions or concerns at this time. FINAL DIAGNOSIS: Constipation
[2020-12-27 19:15] VITALS: BP 111/68
== END 2020-12-27 18:30 | disposition home or self-care (01) ==
LOC: WFO 16:19 → FBP 16:21 → WFO 18:30
PROVIDERS: ATTEND Nurse Practitioner Obstetrics & Gynecology
DX: O99.891 Other specified diseases and conditions complicating pregnancy (principal); K59.00 Constipation, unspecified; O99.343 Other mental disorders complicating pregnancy, third trimester; F41.9 Anxiety disorder, unspecified; Z3A.36 36 weeks gestation of pregnancy
CPT/HCPCS: 99213

== ENCOUNTER 2020-12-31 00:49 | Outpatient (CLI) | payer OTHER ==
[2020-12-31 01:17] VITALS: BP 137/79
[2020-12-31] MEDS ORDERED: MAGNESIUM HYDROXIDE 2,400 MG/30 ML UDC PO ONE (01:32)
--- NOTE | 2020-12-31 19:03 | PROVIDER PROGRESS NOTE ---
- HPI Chief Complaint: Labor Check Current : Current EDU 01/21/21 Gestation 37 Weeks and 0 Days 2 Para 1 Vital Signs Temperature 36.5 C 12/31/20 01:07 Heart Rate 84 12/31/20 01:07 Respiratory Rate 16 12/31/20 01:07 Blood Pressure 137/79 H 12/31/20 01:07 O2 Saturation 98 12/31/20 01:07 Temperature 36.5 C 12/31/20 01:07 Heart Rate 84 12/31/20 01:07 Respiratory Rate 16 12/31/20 01:07 Blood Pressure 137/79 H 12/31/20 01:07 O2 Saturation 98 12/31/20 01:07 - Procedures OB Procedure Performed: NST Diagnosis/Indication for NST: Other NST Procedure: NST Procedure Start Date 12/31/20 Start Time 01:40 Stop Time 02:02 Vibroacoustic Stimulation Used No Patient States Movement Yes Service Date of procedure: 12/31/20 - Plan Plan: S: Romina presents today with c/o contractions and significant discomfort which she is unable to discern is labor or constipation. She states she has been unable to have a bowel movement for the past 3 days. She is passing gas and was able to get small, pellet-like stool out this morning but she knows it is not enough. She has increased her fluid intake and has been taking Colace bid. She has not tried other measures for relief. She denies vaginal bleeding or leakage of fluid. She reports +FM. O: SVE closed/thick/high NST performed 12/31/2020 NST read 12/31/2020 NST reactive; FHR baseline 130s, moderate variability, + accels, no decels Uterine irritability noted via tocometry with occasional contractions which palpates mild A: 30yo @ 37.0wks gestation Constipation P: Pt declines medication of pain management at this time. Milk of Magnesia given now. Encouraged continuation at home and addition of Mirilax daily. Reviewed labor precautions and warning s/sx. Encouraged her to return if she has not had a bowel movement x 24 hours. Pt verbalized understanding and agrees to above plan. She denies further questions or concerns at this time. FINAL DIAGNOSIS: Constipation
== END 2020-12-31 02:00 | disposition home or self-care (01) ==
LOC: WFO 00:49 → FBP 00:52 → WFO 02:00
PROVIDERS: ATTEND Nurse Practitioner Obstetrics & Gynecology
DX: O99.891 Other specified diseases and conditions complicating pregnancy (principal); K59.00 Constipation, unspecified; Z3A.37 37 weeks gestation of pregnancy
CPT/HCPCS: 59025; A9270; 99213

== ENCOUNTER 2021-01-01 09:13 | Outpatient (CLI) | payer OTHER ==
[2021-01-01 09:33] VITALS: BP 100/76
[2021-01-01 10:30] LABS: BASOPHILS % (AUTO) 0.5 %; EOSINOPHILS % (AUTO) 0.1 %; HCT - HEMATOCRIT 36.6 % (37.0-47.0); HGB - HEMOGLOBIN 12.2 g/dL (12.0-16.0); LYMPHOCYTES # (AUTO) 1.2 10^3/uL (1.5-3.5); MEAN CORPUSCULAR HGB CONC 33.3 g/dL (32.0-36.0); MEAN CORPUSCULAR VOLUME 93.1 fL (81.0-99.0); MEAN PLATELET VOLUME 9.6 fL (7.9-10.8); MONOCYTES # (AUTO) 0.9 10^3/uL (0.0-1.0); MONOCYTES % (AUTO) 10.5 %; NEUTROPHILS # (AUTO) 6.1 10^3/uL (1.5-6.6); NEUTROPHILS % (AUTO) 73.4 %; PLT - PLATELET COUNT 280 10^3/uL (130-450); RED BLOOD COUNT 3.93 10^6/uL (4.20-5.40); RED CELL DISTRIBUTION WIDTH 12.4 % (12.0-15.0); WHITE BLOOD COUNT 8.3 x10^3/uL (4.8-10.8)
[2021-01-01 10:42] LABS: ALBUMIN 3.1 g/dL (3.2-5.5); ALBUMIN/GLOBULIN RATIO 0.9 (1.0-2.2); BILIRUBIN,TOTAL 0.3 mg/dL (0.2-1.0); CALCIUM 8.6 mg/dL (8.5-10.3); CREATININE 0.4 mg/dL (0.4-1.0); POTASSIUM 3.7 mmol/L (3.5-5.0); TOTAL PROTEIN 6.4 g/dL (6.7-8.2)
[2021-01-01 10:52] LABS: BILIRUBIN,URINE NEGATIVE (NEGATIVE); GLUCOSE, URINE (UA) NEGATIVE (NEGATIVE); KETONES,URINE (UA) NEGATIVE (NEGATIVE); LEUKOCYTE ESTERASE, URINE NEGATIVE (NEGATIVE); NITRITE,URINE NEGATIVE (NEGATIVE); OCCULT BLOOD,URINE NEGATIVE (NEGATIVE); PROTEIN,URINE NEGATIVE (NEGATIVE); UROBILINOGEN,URINE 0.2 (NORMAL) E.U./dL (NORMAL)
[2021-01-01 11:36] LABS: BACTERIA,URINE Rare /HPF (None Seen); CLARITY,URINE CLEAR (CLEAR); RBC,URINE 0-5 /HPF (0-5); SQUAMOUS EPITHELIAL CELL,UR RARE Squamous (<= Few); WBC,URINE 0-3 /HPF (0-5)
[2021-01-01] MEDS ORDERED: MAGNESIUM HYDROXIDE 2,400 MG/30 ML UDC PO PRN (11:47)
[2021-01-01] MEDS ORDERED: MINERAL OIL ENEMA 133 ML BOTTLE RC ONE (11:51)
--- NOTE | 2021-01-01 13:08 | Ultrasound Report ---
PROCEDURE: Abdomen Complete INDICATIONS: Abd pain TECHNIQUE: Real-time scanning was performed of the abdominal and retroperitoneal organs, with image documentatio n. COMPARISON: 10/31/2020. Correlation is made with the accompanying appendix ultrasound. FINDINGS: Liver: Liver is normal in size and homogeneous in echotexture. Gallbladder: No gallstones or significant sludge can be seen. The gallbladder wall does not appear th ickened. There is no specific pericholecystic fluid. The sonographic Sharma's sign is negative. Biliary ducts: Intrahepatic bile ducts are non-dilated. Extrahepatic bile duct caliber measures 3 m m. Normal is 6-7 mm or less in diameter, or 10 mm or less post-cholecystectomy. Pancreas: Visualized portions of the pancreas are sonographically normal. Spleen: Spleen is normal in size and homogeneous in echotexture. Kidneys: Kidneys are normal in size and echotexture. Right kidney measures 12.2 cm long; left kidne y measures 12.8 cm long. No hydronephrosis or nephrolithiasis. No solid masses. Aorta: Visualized aorta is normal in caliber at less than 3 cm. Iliacs: Proximal common iliac arteries are normal in caliber at less than 2.5 cm. IVC: Intrahepatic inferior vena cava is patent. Miscellaneous: No free abdominal fluid. This patient is , with a measured heart rate of 144 bpm. IMPRESSION: Normal abdominal ultrasound. Note: Concordant preliminary findings given by the senior validation engineer upon the completion of the examination to Dr. Barnett at 11:15 AM on 01/01/2021. Reviewed by: Mark Gonzales MD on 01/01/2021 12:07 PM BALDO Approved by: Mark Gonzales MD on 01/01/2021 12:07 PM BALDO Station ID: [id number]
--- NOTE | 2021-01-01 13:50 | Ultrasound Report ---
PROCEDURE: Abdomen Limited INDICATIONS: The history provided was "appendectomy." However, in clarifying with the technologist, there is clinical concern for appendicitis in this patient without a prior appendectomy. TECHNIQUE: Real-time focused scanning was performed of the abdomen, with image documentation. COMPARISON: Correlation is made with the accompanying abdomen ultrasound, 01/01/2021. FINDINGS: No appendix can be seen, either normal or abnormal. No focal right lower quadrant inflamma tory changes are seen. No free fluid can be seen within the right lower quadrant. No enlarged lymph nodes or masses are seen . IMPRESSION: Negative right lower quadrant ultrasound. No appendix can be seen, either normal or abnormal. No focal right lower quadrant inflammatory change s are seen. Reviewed by: Mark Gonzales MD on 01/01/2021 12:49 PM BALDO Approved by: Mark Gonzales MD on 01/01/2021 12:49 PM BALDO Station ID: [id number]
--- NOTE | 2021-01-02 07:22 | PROVIDER PROGRESS NOTE ---
- HPI Chief Complaint: Other Current : Current EDU 01/21/21 Gestation 37 Weeks and 1 Days 2 Para 1 Vital Signs Temperature 36.5 C 01/01/21 09:31 Heart Rate 89 01/01/21 09:31 Respiratory Rate 17 01/01/21 09:31 Blood Pressure 100/76 01/01/21 09:31 O2 Saturation 98 01/01/21 09:31 Temperature 36.5 C 01/01/21 09:31 Heart Rate 89 01/01/21 09:31 Respiratory Rate 17 01/01/21 09:31 Blood Pressure 100/76 01/01/21 09:31 O2 Saturation 98 01/01/21 09:31 - Procedures OB Procedure Performed: NST NST Procedure: NST Procedure Start Date 01/01/21 Start Time 09:30 Stop Time 10:24 Vibroacoustic Stimulation Used No Patient States Movement Yes Service Date of procedure: 01/01/21 - Plan Plan: Pt evaluated [id number] S: Romina presents today with c/o continued constipation. She states she was able to pass a small amount of stool yesterday but know she still has a lot left to pass. She states the pain is so significant it is making it difficult for her to walk. She is concerned that she will be unable to tolerate labor of any kind with this continued pain. She has taking colace bid for the past 24 hours and has done milk of magnesia once. She denies vaginal bleeding or leakage of fluid. She does not think this is labor pain and denies her abdomen feeling tight when the pain occurs. She reports +FM. O: Heart RRR w/o M/G/R, lungs CTAB, abdomen soft and nontender, bilateral LE'e no edema. UA negative CBC WNL CMP WNL Complete abdominal ultrasound - WNL. Specifically appendix visualization which was not seen on exam. NST performed 01/01/2021 NST read 01/01/2021 NST reactive. FHR Baseline 140s, moderate variability, + accels, no decels Rare contractions appreciated via tocometry. SVE deferred Pt given a dose of Milk of Magnesia and Fleet Mineral Oil enema x once. She was able to pass a small amount of stool. Assessment: 30yo @ 37.1wks gestation Constipation Plan: Pt released home with precautions. Encouraged increased fluid intake and rest. Continue milk of magnesia and mirilax at home. May repeat enema OTC at home in 4 hours if needed. Pt verbalized understanding and agrees to above plan. She denies further questions or concerns at this time. FINAL DIAGNOSIS: Constipation
== END 2021-01-01 13:25 | disposition home or self-care (01) ==
LOC: WFO 09:13 → FBP 09:15 → WFO 13:25
PROVIDERS: ATTEND Nurse Practitioner Obstetrics & Gynecology
DX: O99.891 Other specified diseases and conditions complicating pregnancy (principal); K59.00 Constipation, unspecified; Z3A.37 37 weeks gestation of pregnancy
CPT/HCPCS: 36415; 59025; 76700; 76705; 80053; 81001; 85025; 99214; A9270; 87086; 99213

== ENCOUNTER 2021-01-08 18:35 | Outpatient (CLI) | payer OTHER ==
--- NOTE | 2021-01-09 10:54 | Ultrasound Report ---
PROCEDURE: OB F/U or Repeat INDICATIONS: UTERINE SIZE - DATE DISCREPANCY OUTSIDE/PRIOR DATING DATA: Last menstrual period (LMP): 04/09/2020. LMP-based estimated date of delivery (CLAUDIA): 01/14/2021. First dating scan (date and location): 06/05/2021. Estimated date of delivery (CLAUDIA) from first dating scan: 01/21/2021. The below data below was generated using the ultrasound CLAUDIA of 01/21/2021 TECHNIQUE: Real-time scanning was performed of the fetus, with image documentation and biometric measurements. Endovaginal scanning: Performed for improved visualization COMPARISON: Numerous priors, including 09/04/2020, 10/02/2020, 10/31/2020, 11/28/2020. FINDINGS: General: A single live intrauterine gestation is present. Presentation: Cephalic Placenta: Placental position is posterior, without previa. Amniotic fluid index: 9.5 cm, 5-50 percentile for gestational age. heart rate: 136 beats per minute. Maternal cervical canal: 5 cm long; normal length is 2.5 cm or more. biometrics: Biparietal diameter: 8.6 cm equals 34 weeks 6 days Head circumference: 32.4 cm equals 36 weeks 5 days Abdominal circumference: 30.6 cm equals 34 weeks 4 days Femur length: 7 cm equals 36 weeks 0 days Estimated gestational age from initial scan: 38 weeks 1 day Composite gestational age from present scan: 35 weeks 4 days Estimated weight and percentile: 2607 g, 5.7 percentile Measurement variability in biometric dating: +/- 10 days from 12-20 weeks gestation, +/- 2 weeks from 20-30 weeks gestation, +/- 3 weeks at 30 weeks gestation or more. Other: The stomach is prominent and did not empty over the course of this study. Umbilical artery Doppler measurements are as follows: Umbilical 2.1 Mid 2.5 Placental 2 IMPRESSION: The fetus is at the 5.7 percentile for for weight for the estimated gestational age. EAM within normal limits. Note: No significant discrepancy from the preliminary report. Reviewed by: Mark Gonzales MD on 01/09/2021 9:52 AM BALDO Approved by: Mark Gonzales MD on 01/09/2021 9:52 AM BALDO Station ID: [id number]
== END 2021-01-08 18:36 | disposition home or self-care (01) ==
LOC: DI 18:35
PROVIDERS: ATTEND Nurse Practitioner Obstetrics & Gynecology
DX: O26.843 Uterine size-date discrepancy, third trimester (principal); Z3A.38 38 weeks gestation of pregnancy

== ENCOUNTER 2021-01-11 08:02 | Inpatient (IN) | payer OTHER ==
[2021-01-11] MEDS ORDERED: OXYTOCIN/SODIUM CHLORIDE 500 ML IV PRN (08:30)
[2021-01-11] MEDS ORDERED: OXYTOCIN 10 UNIT/ML VIAL IM PRN (08:30)
[2021-01-11] MEDS ORDERED: miSOPROStoL 200 MCG TABLET BC PRN (08:30)
[2021-01-11] MEDS ORDERED: TRANEXAMIC ACID IN NACL 1,000 MG/100 ML BAG IV PRN (08:30)
[2021-01-11] MEDS ORDERED: CARBOPROST TROMETHAMINE 250 MCG/ML AMP IM PRN (08:30)
[2021-01-11] MEDS ORDERED: LIDOCAINE-MPF 1% 30 ML VIAL ID PRN (08:30)
[2021-01-11] MEDS ORDERED: METHYLERGONOVINE 0.2 MG/ML VIAL IM PRN (08:30)
[2021-01-11] MEDS ORDERED: SODIUM CHLORIDE FLUSH 0.9% 10 ML SYRINGE IVP PRN (08:30)
--- NOTE | 2021-01-11 08:45 | HISTORY & PHYSICAL EXAMINATION ---
Admit History - Visit Reason Visit Reason: Other - : 2 Parity: 1 Premature: 0 Ectopic: 0 : 0 Care: positive: [facility] Risk/History: positive: None Complications This : positive: Other Smoking Status: Never smoker - Mother's Labs Mother's Blood Type: positive: O Mother's RH: positive: Positive GBS: positive: Group B Step Negative Rubella Status: positive: Immune Meds/Allgy - Home Medications Home Medications: Ambulatory Orders Medication Instructions Recorded Confirmed Acetaminophen [Tylenol] 650 mg PO Q6H PRN 04/11/20 12/31/20 Docusate Sodium 250Mg Capsule 250 mg PO DAILY 12/31/20 12/31/20 [Colace 250Mg Capsule] Doxylamine Succinate [Unisom] 25 mg PO DAILY 12/31/20 12/31/20 Famotidine/Ca Carb/Mag Hydrox 1 each PO PRN PRN 12/31/20 12/31/20 [Pepcid Complete Tablet Chew] Magnesium Oxide [Mag Ox] 250 mg PO DAILY 12/31/20 12/31/20 polyethylene glycoL 3350 [Miralax] 17 gm PO DAILY 12/31/20 12/31/20 - Allergies Allergies/Adverse Reactions: Allergies Allergy/AdvReac Type Severity Reaction Status Date / Time sulfamethoxazole AdvReac Hives Verified 12/28/20 11:55 [From Bactrim] trimethoprim [From Bactrim] AdvReac Hives Verified 12/28/20 11:55 Review of Systems - Constitutional Constitutional: denies: Fever, Chills - Eyes Eyes: denies: Blurred vision, Spots in vision, Dipolpia - Cardiovascular Cariovascular: denies: Irregular heart rate, Chest pain, Edema - Respiratory Respiratory: denies: Cough, SOB at rest - Gastrointestinal Gastrointestinal: denies: Constipation, Diarrhea, Change in bowel habits - Integumentary Integumentary: denies: Rash, Pruritis - Neurological Neurological: denies: Headache Physical - Abdominal Exam Contraction Frequency (min/apart): rare Contraction Intensity: positive: Mild Uterine Resting Tone: positive: Soft - Monitoring Heart Rate Baseline: 145 Strip Review: positive: Category I - Presentation Presentation: positive: Vertex - Vaginal Exam Membranes: positive: Membranes intact Dilation (in cm): 1 Effacement (%): 30 Station: positive: -3 Cervical Position: positive: Posterior - Speculum Exam Speculum Exam Performed: positive: No Plan for Labor - Plan For Labor I expect patient to be DC'd or transferred within 96 hours.: Yes Plan for Labor: HPI: Romina is a 30yo @ 38.4wks gestation by 7.1wk U/S not c/w LMP dating who presents for medical induction of labor secondary to IUGR measured by ultrasound with EFW 5.7%tile on 01/08/2021. Umbilical dopplers at that time were WNL. Upon arrival cervix is noted to be 1/30/-3, posterior and vertex. FHR demonstrates Category I pattern with occasional mild contraction. She will be admitted for pre-induction cervical ripening in anticipation for medical induction of labor. She has been a patient of [facility] through the duration of her which has been complicated by low-lying placenta that resolved at 32week f/u ultrasound, in addition to her recent diagnosis of IUGR. She presents today with her Peter. Dating criteria: LMP 04/09/2021 Initial ultrasound @ 7.1wks NOT c/w LMP dating and dates with CLAUDIA 01/21/2021 Serial exams - size less than dates consistently with several follow up ultrasound which remained within normal limits until 01/08/2021 that diagnoses IUGR with EFW 5.7%tile. EMA 9.5 and umbilical cord dopplers WNL. OB Hx: G1: 04/07/2019 @ 40.5wks, 26hr labor. Unmedicated delivery. Female 6lbs 3oz G2: Current Medications: PNV; Sertraline 50mg daily; Famotidine 20mg daily; Reglan PRN Allergies: Sulfa (Critical) PMHx: Anxiety/Depression; Ramesh's Esophagitis; Recurrent OM Surgical Hx: EGD -2016 with biopsies, h pylori negative; wisdom teeth Social Hx: Never smoker, no ETOH or IVDA. Peter. 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 Family Hx: HTN - father; breast cancer - PGM; Alcoholism - brother; Stroke/CVA - MGM; Pancreatic cancer - PGF course: Initial US: at 7.1wks not c/w LMP claudia(01/14/2021) for FINAL CLAUDIA (01/21/2021). O pos/Rubella immune VZV: immune Genetic testing: declined FAS: 09/04/2020 WNL with the exception of low-lying placenta (questionable edge overlapping cervical os on one view. 3VC. Size c/w dating. Will order f/u U/S to be completed at 32wks gestation. F/u 10/02/2020 (placenta remains low-lying. F/u ordered) f/u 10/31/2020- placenta margin remains 1.4cm from internal os f/u ordered for 32wks- low lying placenta resolved Glucola: 116 Influenza: 06/08/2020 TDAP: 11/03/2020 GBS @36wks- Negative HSV: denies self and partner Breast pump Rx: 10/05/2020 MOD: Anticipate ; desires unmedicated delivery; Peter; Daughter Emelyn. 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 baby- girl- Jaycee pp contraception: vasectomy. No longer wants BTL. pap: 06/08/2020- neg Physical exam: Normocephalic, atraumatic Heart RRR w/o M/G/R Lungs CTAB Abdomen soft and nontender. EFW 2607g by recent U/S. FHR baseline 145, moderate variability, + accels, no decels Contractions palpate mild occasionally with soft resting tone SVE 1/30/-3, posterior. Vertex. Intact membranes Bilateral LE's no edema. Mood is good. Assessment: 30yo @ 38.4wks gestation by 7.1wk U/S IUGR FHR Category I GBS negative Plan: Medical induction of labor secondary to IUGR with pre-induction cervical ripening with 50mcg BC misoprostol q 4 hours. Continuous monitoring Pt intends unmedicated delivery. Jacuzzi PRN. Nitrous oxide PRN. Anticipate . Pt verbalized understanding and agrees to above plan. She denies further questions or concerns at this time.
[2021-01-11 08:58] LABS: BASOPHILS % (AUTO) 0.3 %; HCT - HEMATOCRIT 35.3 % (37.0-47.0); HGB - HEMOGLOBIN 11.8 g/dL (12.0-16.0); LYMPHOCYTES # (AUTO) 1.3 10^3/uL (1.5-3.5); LYMPHOCYTES % (AUTO) 12.7 %; MEAN CORPUSCULAR HEMOGLOBIN 30.7 pg (27.0-31.0); MEAN CORPUSCULAR HGB CONC 33.4 g/dL (32.0-36.0); MEAN CORPUSCULAR VOLUME 91.9 fL (81.0-99.0); MEAN PLATELET VOLUME 9.9 fL (7.9-10.8); MONOCYTES # (AUTO) 0.9 10^3/uL (0.0-1.0); NEUTROPHILS # (AUTO) 7.7 10^3/uL (1.5-6.6); NEUTROPHILS % (AUTO) 77.6 %; PLT - PLATELET COUNT 281 10^3/uL (130-450); RED BLOOD COUNT 3.84 10^6/uL (4.20-5.40); RED CELL DISTRIBUTION WIDTH 12.6 % (12.0-15.0); WHITE BLOOD COUNT 9.9 x10^3/uL (4.8-10.8)
[2021-01-11] MEDS ORDERED: LACTATED RINGERS 1,000 ML IV SCH (09:00)
[2021-01-11] MEDS: miSOPROStoL 100 MCG TABLET BC SCH ×5 (09:29→22:36)
[2021-01-11] MEDS ORDERED: polyethylene glycoL 3350 17 GM PACKET PO PRN (09:53)
[2021-01-11] MEDS ORDERED: FAMOTIDINE 20 MG TABLET PO PRN (10:02)
[2021-01-11] MEDS ORDERED: PEPCID COMPLETE PO PRN (10:30)
[2021-01-11] MEDS ORDERED: [UNRECOGNIZED DRUG - OTHER] PO PRN (10:30)
[2021-01-11] MEDS: SODIUM CHLORIDE FLUSH 0.9% 10 ML SYRINGE IVP SCH ×2 (17:36→17:37)
[2021-01-11] MEDS ORDERED: ZOLPIDEM 5 MG TABLET PO PRN (19:37)
[2021-01-11] MEDS: DOCUSATE SODIUM 100 MG CAPSULE PO PRN (21:38)
[2021-01-12] MEDS: miSOPROStoL 100 MCG TABLET BC SCH (02:40)
--- NOTE | 2021-01-12 07:38 | PROVIDER PROGRESS NOTE ---
Subjective - Subjective Subjective: S: Sitting in high thrones and breathing through contractions. She is very tired as she slept very little last night. She reports urge to push at peak of some contractions but not every contraction. Her Peter is supportive at the bedside. O: FHR baseline 125, moderate variability, + accels, occasional early deceleration. SVE 5/90/-1, anterior, soft. Vertex. AROM small amount of clear fluid A: 30yo @ 38.5wks gestation IUGR Active labor FHR Category I GBS neg P: Continuous monitoring Nitrous PRN. Anticipate . Pt denies questions or concerns at this time. Objective - Vital Signs/Intake & Output Intake & Output: Intake & Output 01/09/21 01/10/21 01/11/21 01/12/21 23:59 23:59 23:59 23:59 Intake Total 2499.5 200 Balance 2499.5 200 - Lab Results Fish Bones: 01/11/21 08:40 Other Labs: Lab Results x24hrs 01/11/21 01/11/21 Range/Units 08:40 08:40 WBC 9.9 (4.8-10.8) x10^3/uL RBC 3.84 L (4.20-5.40) 10^6/uL Hgb 11.8 L (12.0-16.0) g/dL Hct 35.3 L (37.0-47.0) % MCV 91.9 (81.0-99.0) fL MCH 30.7 (27.0-31.0) pg MCHC 33.4 (32.0-36.0) g/dL RDW 12.6 (12.0-15.0) % Plt Count 281 (130-450) 10^3/uL MPV 9.9 (7.9-10.8) fL Neut # (Auto) 7.7 H (1.5-6.6) 10^3/uL Lymph # (Auto) 1.3 L (1.5-3.5) 10^3/uL Greenlee # (Auto) 0.9 (0.0-1.0) 10^3/uL Eos # (Auto) 0.0 (0.0-0.7) 10^3/uL Baso # (Auto) 0.0 (0.0-0.1) 10^3/uL Absolute Nucleated RBC 0.00 x10^3/uL Nucleated RBC % 0.0 /100WBC Blood Type O POSITIVE Antibody Screen NEGATIVE
[2021-01-12] MEDS: SODIUM CHLORIDE FLUSH 0.9% 10 ML SYRINGE IVP SCH (07:51)
--- NOTE | 2021-01-12 08:39 | DELIVERY NOTE ---
Delivery Note - Labor Labor: positive: Spontaneous - Delivery Method Delivery Method: positive: Spontaneous vaginal delivery - Cervical Ripening Method Cervical Ripening Method: positive: Misoprostil - Presentation Presentation: positive: Vertex, DAMARI - left occiput anterior - Nuchal Cord Nuchal Cord: positive: Present, Reduced - Amniotic Fluid Description Amniotic Fluid Description: positive: Clear - Episiotomy Type Episiotomy Type: positive: None - Laceration Laceration: positive: None - Delivery Outcome Delivery Outcome: positive: Livebirth - [place] : positive: Placed in direct skin contact with mother, Stimulated, Warmed, [place] used [place] sex: positive: Female - Cord Cord: positive: 3 vessels - Placenta Placenta: positive: Intact, Spontaneous - Estimated Blood Loss Estimated Blood Loss (in cc): 250 - Post Delivery Events Post Delivery Events: positive: No post delivery events - Delivery Comments (Free Text/Narrative) Delivery Comments (Free Text/Narrative): Labor: This 30yo @ 38.5wks gestation by first trimester ultrasound presented on 01/11/2021 for medical induction of labor secondary to new diagnosis of IUGR. Cervix was 1/30/-3 and vertex. She received 6 total doses of 50mcg BC misoprostol for effective pre-induction cervical ripening. FHR pattern demonstrated Category I pattern throughout labor. Precipitous labor course. AROM occurred at 0720 and was noted to be a small amount of clear fluid. Pt progressed to c/c/ +3 at 0809. : Normal of viable female on 01/12/2021 @ 0810. Nuchal cord x 1 was reduced. The was placed on maternal abdomen, stimulated, dried, and placed skin to skin. 's were 8/9 at 1 and 5 minutes respectively. Pitocin administered via IV for hemostasis. The umbilical cord was allowed to stop pulsating at which time it was doubly clamped by CNM and cut by FOB. 3VC. Cord blood was obtained. Fundal massage and gentle cord traction applied for active management of the third stage. Placenta delivered spontaneously and intact at 0812. EBL 250mL. Fourth stage: Uterine fundus firm and there is no excessive bleeding. The per ineum, vagina, and cervix were inspected and noted to be intact. initiated. Family bonding well. Both mother and baby were left in stable condition.
[2021-01-12] MEDS: ACETAMINOPHEN 500 MG TABLET PO SCH ×2 (08:59→16:33)
[2021-01-12] MEDS: IBUPROFEN 800 MG TABLET PO SCH ×3 (09:00→22:48)
[2021-01-12] MEDS: DOCUSATE SODIUM 100 MG CAPSULE PO PRN (21:45)
[2021-01-13] MEDS: ACETAMINOPHEN 500 MG TABLET PO SCH (02:01)
[2021-01-13] MEDS: IBUPROFEN 800 MG TABLET PO SCH (04:44)
[2021-01-13 08:09] VITALS: BP 111/70
--- NOTE | 2021-01-13 13:19 | Discharge Plan ---
Discharge Plan Problem Reviewed?: Yes Disposition: Home, Self Care Condition: Good Diet: Regular Activity Restrictions: No Restrictions Shower Restrictions: No Driving Restrictions: No Weight Bearing: Full Weight No Smoking: If you smoke, Please STOP! Call for help. Follow-up with: Anayeli Theodore CNM, ARNP [Provider Admit Priv/Credential] -
--- NOTE | 2021-01-13 13:37 | PROVIDER PROGRESS NOTE ---
Subjective - Subjective Subjective: FINAL PROGRESS NOTE: S: Bonding well with baby. without difficulty. Bleeding decreased and is light. Pain well controlled with oral medications. Mood is good and she is well supported by her Peter. They desire to be discharged home today. O: BP 111/70, T 36.6, HR 77, RR 18 Heart RRR w/o M/G/R, lungs CTAB, abdomen soft and nontender, perineum intact, light lochia rubra, bilateral LE's no edema. A: 30yo -->P2 PPD#1 s/p TSVD viable female Normal recovery P: Reviewed pp self care and warning s/sx and when to present. Pt has emergency contact information. Encouraged continuation of PNV while . Continue ibuprofen and tylenol OTC as needed for pain management. F/u in 1 week for routine pp visit or sooner PRN. Pt verbalized understanding and agrees to above plan. She denies further questions or concerns at this time. Objective - Vital Signs/Intake & Output Vital Signs: Vital Signs x48h Temp Pulse Resp BP Pulse Ox 01/13/21 08:09 36.6 C 77 18 111/70 98 Intake & Output: Intake & Output 01/10/21 01/11/21 01/12/21 01/13/21 23:59 23:59 23:59 23:59 Intake Total 2499.5 700 Output Total 250 Balance 2499.5 450 - Lab Results Fish Bones: 01/11/21 08:40
--- NOTE | 2021-01-13 13:43 | DISCHARGE SUMMARY ---
Discharge Summary Condition at Discharge: Good Discharge Disposition: 01 Home, Self Care - HOSPITAL COURSE Hospital Course: Date of Admission: 01/11/2021 Date of Discharge: 01/13/2021 Diagnosis on Admission: 1. 30yo @ 38.4wks gestation by 7.1wk U/S 2. IUGR 3. GBS negative Diagnosis on Discharge: 1: 30yo PPD# 1 s/p TSVD viable female 2. 3. Normal recovery Brief History: She is a patient of [facility] who presented on 01/11/2021 at 0800 for medical induction of labor secondary to newly diagnosed IUGR. She was given 6 total doses of 50mcg BC misoprostol for pre-induction cervical ripening. AROM occurred for labor augmentation and patient progressed to spontaneously deliver a viable female on 01/12/2021 @ 0810. Apgars were 8/9 at 1 and 5 minutes respectively. EBL 250mL. The perineum, vagina, and cervix were inspected and noted to be intact. She has been doing well in her course. She is ambulating and tolerating a regular diet. She is urinating without difficulty and her lochia is normal. Her pain is well controlled with oral medications. She will be discharged home today on day #1 with instructions to continue taking her vitamin while , and to continue taking ibuprofen and tylenol over the counter as needed for pain management. She intends to follow up with myself at [facility] in 1 week for routine visit or sooner if needed. She has been given precautions to call if she has any worsening fevers, chills, abdominal pain, increased bleeding or foul smelling vaginal lochia. - ALLERGIES Allergies/Adverse Reactions: Allergies Allergy/AdvReac Type Severity Reaction Status Date / Time sulfamethoxazole AdvReac Hives Verified 12/28/20 11:55 [From Bactrim] trimethoprim [From Bactrim] AdvReac Hives Verified 12/28/20 11:55 - MEDICATIONS Home Medications: Ambulatory Orders Medication Instructions Recorded Confirmed Acetaminophen [Tylenol] 650 mg PO Q6H PRN 04/11/20 12/31/20 Doxylamine Succinate [Unisom] 12.5 - 25 mg PO DAILY PRN 12/31/20 01/11/21 Famotidine/Ca Carb/Mag Hydrox 1 each PO PRN PRN MDD 1 12/31/20 01/11/21 [Pepcid Complete Tablet Chew] Magnesium Oxide [Mag Ox] 250 mg PO DAILY 12/31/20 01/11/21 polyethylene glycoL 3350 [Miralax] 17 gm PO DAILY PRN MDD 1 12/31/20 01/11/21 Docusate Sodium 100Mg Capsule 100 mg PO TID PRN MDD 3 01/11/21 01/11/21 [Colace 100Mg Capsule] - LABS Result Diagrams: 01/11/21 08:40
--- NOTE | 2021-01-13 16:12 | Labor Flowsheet ---
Labor Flowsheet Datetime Report Generated by CPN: 01/13/2021 16:12 Datetime: 01/13/2021 07:50 VITAL SIGNS NBP Sys/[place]/Mean (mmHg): 111 : 70 : 80 Pulse: 78 Datetime: 01/12/2021 23:04 SpO2 (%): 100 Datetime: 01/12/2021 11:13 Stage of : Recovery Datetime: 01/12/2021 10:20 Respirations: 16 Temperature (C): 36.6 Temperature Route: Oral PAIN Pain Scale: 0 Datetime: 01/12/2021 09:15 Pain Presence: Intermittent Pain Type: Cramping Pain Relief Measures: Pain Medication Given Datetime: 01/12/2021 08:44 Pain Location: Abdomen; Perineum Datetime: 01/12/2021 08:10 UTERINE ACTIVITY Monitor Mode: External Frequency (min): 2-3 Quality: Strong Duration (sec): 60-80 Pattern: Normal: <= 5 Contractions in 10 Minutes Resting Tone (Palpate): Relaxed Variability: Moderate 6-25 bpm Decelerations: Early; Variable Comments: FHR heard in the 130s-160s while pt on birthng ball Oxygen Method: Room Air Datetime: 01/12/2021 08:09 Pain Assessment Comments: urge to push STAGE 2 Pushing: Urge to Push Pushing Position: Pushing with Contractions Pushing Progress: Descent with Pushing COMMUNICATION Communication: Provider at Bedside Communication Comments: ever eduin and baby nurse called into room after pt felt urge to push LaborFlag: Labor Datetime: 01/12/2021 08:00 ASSESSMENT A Monitor Mode: Telemetry FHR Baseline Rate : 140 FHR Baseline Changes: No Baseline Change Accelerations: 15X15 Category: Category II Patient Position/Activity: Birthing Ball Datetime: 01/12/2021 07:56 Medication Comments: nitrous Datetime: 01/12/2021 07:34 Pain Coping: Breathing Through Contractions Datetime: 01/12/2021 07:20 Membrane Status: Ruptured Membranes Rupture Method: Artificial Amniotic Fluid Color: Clear Amniotic Fluid Amount: Small Datetime: 01/12/2021 07:19 VAGINAL EXAM Dilatation (cm): 5.0 Effacement (%): 90 Station: -1 Exam by: Ever Theodore CNM Datetime: 01/12/2021 05:15 Vaginal Bleeding: Normal Show Cervix, Consistency: Soft Cervix, Position: Midposition Datetime: 01/12/2021 04:24 I/O Interventions: Up to BR Datetime: 01/12/2021 04:14 Monitor Interventions for UA: [place] Adjusted Monitor Interventions for FHR: Ultrasound Adjusted Datetime: 01/12/2021 02:40 MEDICATIONS Cervical Ripening Agents: Cytotec @ 50 Datetime: 01/12/2021 02:34 Pain Goal: 0 Datetime: 01/11/2021 21:47 Patient Care Comments: Pt showering Datetime: 01/11/2021 19:24 MATERNAL ASSESSMENT Level of Consciousness: Alert DTR's/Clonus: DTRs 2+ Headache: Denies Nausea/Vomiting: Denies RUQ Epigastric Pain: Denies Comfort Measures: Breathing/Relaxation Datetime: 01/11/2021 15:22 TEACHING Teaching Comments: Patient encouraged to continue position changes including [id number] Datetime: 01/11/2021 14:51 PATIENT CARE IV/Blood Work: New IV Bag Hung; IV Bag Number @ 1 Datetime: 01/11/2021 14:00 Contraction Comments: Contractions palpate mild and relaxes between contractions Datetime: 01/11/2021 10:22 Breath Sounds, Left: Clear and Equal Breath Sounds, Right: Clear and Equal
== END 2021-01-13 14:00 | disposition home or self-care (01) | DRG 807 ==
LOC: WFO 08:02 → FBP 08:10 → WFO 08:29 → FBP 08:30
PROVIDERS: ADMIT Nurse Practitioner Obstetrics & Gynecology; ATTEND Nurse Practitioner Obstetrics & Gynecology
PROC: 3E0DXGC Introduction of Other Therapeutic Substance into Mouth and Pharynx, External Approach (ICD-10-PCS; 2021-01-11)
PROC: 10907ZC Drainage of Amniotic Fluid, Therapeutic from Products of Conception, Via Natural or Artificial Opening (ICD-10-PCS; principal; 2021-01-12)
PROC: 10E0XZZ Delivery of Products of Conception, External Approach (ICD-10-PCS; 2021-01-12)
DX: O36.5930 Maternal care for other known or suspected poor fetal growth, third trimester, not applicable or unspecified (principal); Z37.0 Single live birth; O69.81X0 Labor and delivery complicated by cord around neck, without compression, not applicable or unspecified; Z3A.38 38 weeks gestation of pregnancy
CPT/HCPCS: 36415; 85025; 86850; 86900; 86901; A9270; J7120

== ENCOUNTER 2021-01-18 08:00 | Outpatient (CLI) | payer OTHER | END 2021-01-18 23:59 | disposition home or self-care (01) | LOC: LAB.WC 08:00 | PROVIDERS: ATTEND Nurse Practitioner Obstetrics & Gynecology | DX: R30.0 Dysuria (principal) | CPT/HCPCS: 87086 ==